=== PATIENT | male | born 1960 | race Caucasian/White ===

== ENCOUNTER 2025-04-18 16:34 | Inpatient (IN) | payer MEDICARE, BC, SELFPAY ==
[2025-04-18] VITALS (10 sets, daily range): BP systolic 102–147; BP diastolic 74–99; PULSE 90–107; RESP 18–91; TEMP 36.3–36.6; O2SAT 95–98; BMI 40.6
--- NOTE | 2025-04-18 16:52 | PD.EDSOB ---
ED SOB =RME/HPI General Chief Complaint: Shortness of Breath/Dyspnea Stated Complaint: SHORTNESS OF BREATH Time Seen by Provider: 04/18/25 16:51 Arrival date/time: 04/18/25 16:34 RME / HPI RME / HPI Narrative: DR. SUBRAMANIAN MAIN ED EVALUATION: 64 year old male presents to the Emergency Department [facility] with complaint of shortness of breath onset 1 week, worse today. Laying down exacerbates his shortness of breath. Patient states that his symptoms have been worse for the last 3 days and he has been doing nebulizer treatment x4/day and x8 puffs of inhaler/ day. No other symptoms reported at this time. PMHx: COPD, CHF, pacemaker, home oxygen on 2 L/min at night and as needed for daytime, atrial fibrillation on Eliquis. Social Hx: Patient states he quit smoking 2.5 weeks ago. No alcohol or substance use. Related Data Home Medications ?Medication ?Instructions ?Recorded ?Confirmed amiodarone 200 mg tablet 200 mg PO BID 08/03/23 04/19/25 apixaban 5 mg tablet (Eliquis) 5 mg PO BID 08/03/23 09/22/24 Held on 09/23/24. Instructions: Resume on 10/01/24. Hold for 1 week then may resume bumetanide 1 mg tablet 1 mg PO DAILY 08/03/23 04/19/25 spironolactone 25 mg tablet 25 mg PO DAILY 08/03/23 04/19/25 rosuvastatin 40 mg tablet 20 mg PO DAILY 09/22/24 09/22/24 sacubitril 24 mg-valsartan 26 mg 1 tab PO BID 09/22/24 09/22/24 tablet (Entresto) Previous Rx's ?Medication ?Instructions ?Recorded carvedilol 6.25 mg tablet 6.25 mg PO BID 30 days #60 tabs 08/06/23 Allergies Allergy/AdvReac Type Severity Reaction Status Date / Time No Known Allergies Allergy Verified 04/18/25 17:02 Review of Systems Review of Systems Systems Reviewed: All systems reviewed, normal except as documented Narrative Review of Systems: GEN: No fever, no chills, no weight loss EYES: No discharge, no visual changes, no pain HEENT: No ear pain, no congestion, no sore throat PULM: + shortness of breath, no cough, no congestion CV: No chest pain, no dyspnea on exertion, no palpitations GI: No nausea, no vomiting, no diarrhea, no pain, no constipation : No frequency, no urgency and no dysuria MUSC/SKEL: No joint pain, no back pain SKIN: No rash PSYCH: No hallucinations, no depression HEME/LYMPH: No easy bleeding or bruising tendencies NEURO: No weakness, no headache Past Medical History Past Medical History NEUROLOGIC: Negative Neurological Disorders CARDIAC: Positive Cardiac Arrhythmia, Atrial Fibrillation, Congestive Heart Failure, Valvular Heart Disease, Cardiomyopathy and Hypotension; Negative Hypercholesterolemia RESPIRATORY: Positive Chronic Obstructive Pulmonary Disease (COPD), Bronchitis and Sleep Apnea GASTROINTESTINAL: Positive Obesity ENT: Positive Deafness OTHER HISTORY: Positive Hospitalization Surgical History SURGICAL: Positive Coronary Stent (2 16 years ago), Cardiac Catheterization, Pacemaker, Auto Implanted Cardiovert Defib and Tonsillectomy Social History SMOKING STATUS: Former smoker (2.5 weeks ago quit) SUBSTANCE USE: does not use ALCOHOL: Never ED Exam Narrative Physical exam: GENERAL APPEARANCE: AxOx4, generally well-appearing, no acute distress. HEENT: NC, AT. MMM. EOMI, clear conjunctiva, oropharynx clear. NECK: Supple without lymphadenopathy. No stiffness or restricted ROM. HEART: Normal rate and regular rhythm, normal S1/S1, no m/r/g LUNGS: Diminished breath sounds bilaterally, wadsworth expiratory wheezing. ABDOMEN: Soft, nontender, nondistended with good bowel sounds heard. BACK: No midline C/T/L spine pain or deformity, No CVAT, no obvious deformity. EXTREMITIES: Without cyanosis, clubbing or edema. MUSCULOSKELETAL: FROM of all major joints, no chest tenderness NEUROLOGICAL: Grossly nonfocal. Alert and oriented, moving all 4 extremities. CN not formally tested but appear grossly intact. Skin: Warm and dry without any rash. Course Quality Measures none Orders Category Date Time Status Bedside COVID-19 Antigen Test NOW Care 04/18/25 19:32 Active Bedside Influenza A&B Antigen Test NOW Care 04/18/25 19:32 Completed Machine Wood Sander Q4H START 00 Care 04/18/25 19:33 Active Machine Wood Sander STAT Care 04/18/25 19:33 Completed Continuous Pulse Oximetry STAT Care 04/18/25 19:33 Completed EKG (ED ONLY) *Do not use* NOW Care 04/18/25 16:56 Completed EKG (ED Only) Stat Exams 04/18/25 16:56 Draft XR chest 1V portable Stat Exams 04/18/25 16:52 Completed B-Type Natriuretic Peptide Stat Lab 04/18/25 20:13 Completed Blood Culture (Lab) Stat Lab 04/18/25 20:16 Received CBC Stat Lab 04/18/25 17:26 Completed CMP [Comprehensive Metabolic Panel] Stat Lab 04/18/25 17:26 Completed Lactate (Lactic Acid) Stat Lab 04/18/25 20:13 Completed Lipase Stat Lab 04/18/25 20:13 Completed Magnesium Stat Lab 04/18/25 20:13 Completed Phosphorous Stat Lab 04/18/25 20:13 Completed Procalcitonin Stat Lab 04/18/25 20:13 Completed Prothrombin Time with INR Stat Lab 04/18/25 20:13 Completed Troponin I Stat Lab 04/18/25 17:26 Completed Troponin I Stat Lab 04/18/25 20:13 Completed ALBUTEROL RT 0.5ml [Proventil Rt 0.5ml] Med 04/18/25 16:52 Discontinued 10 mg INH X1 ONE Azithromycin Inj [Zithromax Inj] 500 mg Med 04/18/25 21:07 Discontinued Sodium Chloride 0.9% 250 ml [Ns] 250 ml IV X1 Bumetanide Inj [Bumex Inj] Med 04/18/25 16:52 Discontinued 2 mg IVP X1 ONE Ipratropium Beemer Rt Kim [Atrovent Rt Kim] Med 04/18/25 16:52 Discontinued 1 mg INH X1 ONE Sodium Chloride Rt Kim 0.9% [NS Rt Kim 0.9%] Med 04/18/25 16:52 Active 3 ml INH PRN PRN cefTRIAXone/D5w 1gm IV premix [Rocephin/D5w 1gm IV Med 04/18/25 21:07 Discontinued premix] 1 gm in 50 ml IV X1 predniSONE Med 04/18/25 16:52 Discontinued 60 mg PO X1 ONE Oxygen Delivery NOW RT 04/18/25 19:33 Active Vital Signs Vital signs: Vital Signs Temperature 97.5 F 04/18/25 16:35 Pulse Rate 105 H 04/18/25 16:35 Respiratory Rate 19 04/18/25 16:35 Blood Pressure 116/74 04/18/25 16:35 Pulse Oximetry (%) 97 04/18/25 16:35 Oxygen Delivery Method Nasal Cannula 04/18/25 16:35 Oxygen Flow Rate 6 04/18/25 16:35 Procedures -ED EKG Interpretation #1: Date of EK04/18/25 Time of EK:33 Rate: 104 Interpretation: Interpreted by me Additional EKG comment: paced rhythm, rate 104, no STEMI Shortness of Breath / Dyspnea MDM Narrative MDM Narrative:: I, Mavis Pedraza am scribing for and in the presence of Dr. Subramanian. Patient data External records reviewed:: EMS form Clinical information provided by:: patient and EMS Social determinants that could affect healthcare access:: none Patient has the following chronic illnesses:: COPD, CHF, pacemaker, home oxygen on 2 L/min at night and as needed for daytime, atrial fibrillation on Eliquis. How is presenting disease/condition affected by chronic disease/condition?: exacerbated by Evaluation data The following diagnostics were reviewed and interpreted by me:: lab results, radiology exam(s) and EKG tracing(s) Lab and/or radiology exams considered but not ordered:: none Interpretation Summary: Procedure(s): XR chest 1V portable Accession Number(s): [id number] cc: Westley Subramanian MD; Gen Agustin MD; Jose Oneill MD~ Examination: AP chest single view TECHNIQUE: Sitting AP portable chest single view Date and time: April 18, 2025 1804 hours Comparison July 13, 2024 INDICATIONS: Shortness of breath today. FINDINGS: Mild CHF Moderate enlargement left ventricle, pulmonary vascular congestion with perihilar basilar edema Cardiac leads stable position IMPRESSION: Mild CHF Dictated By: Gen Agustin MD Medications / Prescriptions Medications or Prescriptions considered but not ordered:: none Medication administrations:: Medication Administration History Albuterol/Ipratropium (Albuterol/Ipratropium (Duoneb) Rt Kim 3 Ml Nebu) 3 ml INH Q4HRRT [facility] Stop: 05/19/25 02:59 Last Admin: 04/19/25 06:37 Dose: 3 ml Documented By: Admin: 04/19/25 03:46 Dose: Not Given Documented By: PAR Non-Admin Reason: Patient Refused Furosemide (Furosemide Inj 10 Mg/Ml 4ml Vial) 40 mg IVP QDAY YESICA Stop: 05/19/25 08:59 Heparin Sodium (Porcine) (Heparin Sod Inj 5000 Unit/Ml Vial) 5,000 unit SC Q8HR YESICA Stop: 05/03/25 05:59 Last Admin: 04/19/25 06:06 Dose: 5,000 unit Documented By: Co-signed By: [facility] Ondansetron HCl (Ondansetron Inj 2 Mg/Ml Inj 2 Ml) 4 mg IV Q6H PRN; Protocol PRN Reason: NAUSEA OR VOMITING Stop: 05/19/25 00:17 Sennosides (Senna Tablet) 1 tab PO QDAY PRN; Protocol PRN Reason: constipation Stop: 05/19/25 00:17 Sodium Chloride (Sodium Chloride Rt Kim 0.9% 3 Ml Nebu) 3 ml INH PRN PRN PRN Reason: SOLN Stop: 05/18/25 16:51 Discontinued Medications Albuterol (Albuterol Rt 2.5 Mg/0.5 Ml Nebu) 10 mg INH X1 ONE Stop: 04/18/25 16:53 Last Admin: 04/18/25 17:29 Dose: 10 mg Documented By: [facility] Bumetanide (Bumetanide Inj 0.25 Mg/Ml Vial 4 Ml) 2 mg IVP X1 ONE Stop: 04/18/25 16:53 Last Admin: 04/18/25 17:47 Dose: 2 mg Documented By: LUISA Ceftriaxone Sodium/Dextrose (Rocephin/D5w 1gm Iv Premix) 1 gm in 50 mls @ 100 mls/hr IV X1 ONE Stop: 04/18/25 21:36 Last Infusion: 04/18/25 22:21 Dose: Infused Documented By: Admin: 04/18/25 21:29 Dose: 100 mls/hr Documented By: JAZLYN Azithromycin 500 mg/ Sodium (Chloride) 250 mls @ 250 mls/hr IV X1 ONE Stop: 04/18/25 22:06 Last Infusion: 04/18/25 22:32 Dose: Infused Documented By: Admin: 04/18/25 21:30 Dose: 250 mls/hr Documented By: JAZLYN Ipratropium Beemer (Ipratropium Rt 0.5 Mg/ 2.5 Ml Nebu) 1 mg INH X1 ONE Stop: 04/18/25 16:53 Last Admin: 04/18/25 17:29 Dose: 1 mg Documented By: [facility] Prednisone (Prednisone 20 Mg Tablet) 60 mg PO X1 ONE Stop: 04/18/25 16:53 Last Admin: 04/18/25 17:46 Dose: 60 mg Documented By: DB see above Consultations Consultation(s) initiated? (list below): No Diagnosis Shortness of Breath Differential Diagnosis: acute exacerbation of chronic obstructive airways disease, congestive heart failure and community acquired pneumonia Most likely diagnosis given after review of the tests above:: No official diagnoses at this time, still pending diagnostic tests. Patient signout to the overnight stocker provider. Admission Indicated Admission indicated?: indicated Explain why admission is indicated or not indicated:: No final disposition plan at this time, still pending diagnostic tests. Patient signout to the overnight stocker provider. Admission Request Was there a request for admission?: No Disposition Plan Disposition Plan: other (specify) (Patient signout to the overnight stocker provider.) Critical Care Time Critical Care Time Critical Care Time: Yes Total Critical Care Time (min.): 35 Attestation: The high probability of sudden, clinically significant deterioration in the patient?s condition required the highest level of my preparedness to intervene urgently. The services I provided to this patient were to treat and/or prevent clinically significant deterioration. Services included the following: chart data review, reviewing nursing notes and/or old charts, documentation time, systems consultant collaboration regarding findings and treatment options, medication orders and management, direct patient care, vital sign assessments and ordering, interpreting and reviewing diagnostic studies and lab tests. Aggregate critical care time includes only time during which I was engaged in work directly related to the patient?s care, as described above, whether at bedside or elsewhere in the Emergency Department. It did not include time spent performing other reported procedures or the services of residents, students, nurses or physician assistants. Discharge Plan Plan Patient Disposition: Admit Acute Care w/in Hospital Problem List Clinical Impression: Pneumonia, COPD exacerbation, Sepsis
--- NOTE | 2025-04-18 16:56 | EKG_ITS ---
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
[2025-04-18] MEDS: IPRATROPIUM RT 0.5 MG/ 2.5 ML NEBU 1 MG INH (17:29)
[2025-04-18] MEDS: ALBUTEROL RT 2.5 MG/0.5 ML NEBU 10 MG INH (17:29)
[2025-04-18] MEDS: predniSONE 20 MG TABLET 60 MG PO (17:46)
[2025-04-18] MEDS: BUMETANIDE INJ 0.25 MG/ML VIAL 4 ML 2 MG IVP (17:47)
[2025-04-18 17:51] LABS: Basophils # (Auto) 0.1 Thou/mm3 (0.0-0.2); Basophils % (Auto) 1 % (0-2.5); Eosinophils # (Auto) 0.4 Thou/mm3 (0.0-0.5); Eosinophils % (Auto) 3 % (0-10); Hematocrit 48.5 % (41.0-53.0); Hemoglobin 17.7 g/dL (13.5-16.0); Immature Granulocytes % (Auto) 0 % (0-0); Immature Granulocytes Auto 0.04 Thou/mm3 (0.00-0.00); Lymphocytes # (Auto) 3.3 Thou/mm3 (1.0-4.8); Lymphocytes % (Auto) 31 % (10-50); Mean Corpuscular HGB Conc 36.5 g/dl (31.0-37.0); Mean Corpuscular Hemoglobin 34.1 pg (25.0-35.0); Mean Corpuscular Volume 93 fL (80-100); Monocytes # (Auto) 1.1 Thou/mm3 (0.0-0.8); Monocytes % (Auto) 10 % (0-12); Neutrophils # (Auto) 5.9 Thou/mm3 (1.8-7.7); Neutrophils % (Auto) 55 % (37-80); Nucleated Red Blood Cell % 0 /100 WBC (0); Platelet Count 206 Thou/mm3 (140-440); Red Blood Count 5.19 Miln/mm3 (4.50-5.90); White Blood Count 10.8 Thou/mm3 (3.8-10.6)
--- NOTE | 2025-04-18 18:15 | PD.EDADDENDU ---
Emergency Room Addendum Addendum Narrative: 1800: Care assumed from Dr. Starr, the previous shift emergency physician. Past medical, surgical, social and family history reviewed. Vitals and home medications reviewed. Results and treatment plan discussed. I will assume the care of the patient at this time and will follow the patient, pending work-up. Please refer to the emergency department record for history and examination from initial visit. 64yo male with a history of cardiomyopathy, CHF, COPD, aFib on Eliquis, HTN, HLD BIBA from home presents to the ED for a chief complaint of shortness of breath. Patient endorses having chronic shortness of breath, but reports his symptoms have progressively gotten worse over the last 3-4 days. Patient reports feeling fatigued, generally weak, and having a productive cough. Patient has been using his breathing treatments and nebulizer treatments at home without improvement of symptoms. He has not been taking his water pills on a regular basis due to being concerned over his at a local SNF. Patient states he recently finished a course of antibiotics for URI, but the daughter was concerned due to the patient's worsening symptoms, so she called 911 to bring the patient in for evaluation. CXR shows cardiomegaly, dual chamber pacemaker, and right lower lobe infiltrate, according to my interpretation. WBC 10.8, HnH 17.7/48.5, BUN 26, Glucose 132, Troponin is normal, Lactic Acid is 2.3, BNP is 526, Procalcitonin is normal, Bedside COVID and Influenza are negative, according to my interpretation. 2105: Patient has a HR of 106 with a RR of 24. IVF not ordered due to the patient's history of CHF. Rocephin and Azithromycin ordered. 2206: Discussed results with the patient at bedside. I informed the patient that he needs to be admitted for further treatment. Patient is agreeable with the plan. Will consult an admission to the hospitalist. 2110: Discussed case with the resident physician, attending Dr. Eddy from Hospitalist service regarding admission. Discussed patients ED course, exam findings, labs, and radiology results. The Hospitalist agrees to accept the patient for admission. Diagnoses include pneumonia, COPD exacerbation, and sepsis.
[2025-04-18 18:20] LABS: Alanine Aminotransferase 48 U/L (10-49); Albumin, Serum 4.3 gm/dL (3.4-4.8); Albumin/Globulin Ratio 1.5 (1.2-2.2); Alkaline Phosphatase 91 U/L (46-116); Anion Gap 8 (7-16); Aspartate Amino Transferase 32 U/L (0-34); BUN/Creatinine Ratio 22 Ratio (12-20); Bilirubin,Total 0.5 mg/dL (0.3-1.2); Blood Urea Nitrogen 26 mg/dL (9-23); Calcium 8.8 mg/dL (8.3-10.6); Calcium (Corrected) 8.8 mg/dL (8.5-10.1); Carbon Dioxide 22.7 mMol/L (20.0-31.0); Chloride 111 mMol/L (98-107); Creatinine (Component) 1.2 mg/dL (0.6-1.3); Estimated Creatinine Clearance 67.3 mL/min (>60); Globulin 2.8 gm/dL (2.3-3.5); Glucose 132 mg/dL (74-106); Osmolality,Calculated 289 (275-295); Potassium 4.1 mMol/L (3.4-5.1); Sodium 142 mMol/L (136-145); Total Protein 7.1 gm/dL (5.7-8.2); Troponin I 0.036 ng/mL (0.0-0.045); eGFR > 60 See Note
[2025-04-18 20:24] LABS: Lactate (Lactic Acid) 2.3 mMol/L (0.4-2.0)
[2025-04-18 20:35] LABS: Prothrombin Time 11.2 Seconds (9.0-12.2)
[2025-04-18 20:45] LABS: B-Type Natriuretic Peptide 526 pg/mL (0-100)
[2025-04-18 20:53] LABS: Lipase 31 U/L (12-53); Magnesium 2.1 mg/dL (1.6-2.6); Phosphorous 3.1 mg/dL (2.4-5.1); Procalcitonin 0.11 ng/ml (0.0-0.49); Troponin I 0.036 ng/mL (0.0-0.045)
[2025-04-18] MEDS: cefTRIAXone/D5w 1gm IV premix 1 GM/50 ML BAG IV (21:29)
[2025-04-18] MEDS: AZITHROMYCIN INJ 500 MG in SODIUM CHLORIDE 0.9% 250 ML 250 ML 250 MG IV (21:30)
[2025-04-18 23:15] LABS: Reflex Lactate? Y
[2025-04-19] VITALS (12 sets, daily range): BP systolic 100–170; BP diastolic 78–95; PULSE 78–119; RESP 16–22; TEMP 35.9–36.4; O2SAT 94–100; BMI 40.6
--- NOTE | 2025-04-19 01:40 | ESHP_ITS ---
<Statement entered by Kt Eddy MD - 04/19/25 13:31> I have discussed and was present for the essential components of the history, physical examination, diagnosis, and treatment plan with the resident. I agree with the patient's care as documented by the resident and amended herein by me. Kt Eddy MD FACP. Documentation for date of: 04/19/25 HPI History of Present Illness Chief complaint: SOB History of present illness: Lonnie Celis is 64 yr male with PMH of CAD status post 4 stents, HFrEF EF 25%, possible COPD, hypertension denting to ED due to shortness of breath since past couple days. Patient states that he has a difficult time walking around the house doing daily activities without short of breath. Resolves with rest. Uses 2 L of oxygen every night. Follows with cardiology Dr. Warner closely outpatient. Last appointment few days ago where he had stress test completed. Does not believe there were any changes made to her medication regimen. Usually checks blood pressure at home ranging 110?120 systolic. Admits to missing doses of diuretic medication in the past week as patient's is at the hospital and is avoiding excessive urination or trips to the bathroom. Currently weight is 237, does not know dry weight. Endorses orthopnea, PND, occasional lower extremity edema. Unable to sleep on his back. Denies any chest pain, fever, vomiting, abdominal pain. Was started on amoxicillin course by PCP which she completed 5 of 7 days. States that he was started on the antibiotics due to his cough. In ED, blood pressure 135/90, heart rate 102, RR 21, saturating 96% on 2 L nasal cannula. CBC unremarkable, CMP unremarkable. Elevated lactic acid 2.3 BNP 526. Chest x-ray official read pending peers to be possible right lower lung pneumonia with pulmonary vessel congestion. He was given DuoNeb, prednisone 60 mg, Bumex 2 mg IV, ceftriaxone, azithromycin while in the ED. Patient to be admitted for mild CHF exacerbation versus pneumonia. PMH: As noted above PSH appendectomy, for pacemaker replacements, 4 stents Family Hx: Denies CAD history, alcohol use disorder in father side. Social: Lives with in [place]. Smokes 1 pack of cigarettes every few days for past 40 years. Drinks socially, denies drug use. Meds: Med rec pending Allergies: NKDA Review of Systems Review of Systems Systems Reviewed: All systems reviewed, normal except as documented Exam Vital Signs Temp Pulse Resp BP Pulse Ox O2 Del Method O2 Flow Rate 97.6 F 106 H 18 128/99 H 96 Nasal Cannula 2 04/18/25 23:11 04/18/25 23:11 04/18/25 23:11 04/18/25 23:11 04/18/25 23:11 04/18/25 23:11 04/18/25 23:11 Narrative Exam General: Elderly male, obese, no acute distress, cooperative, laying on his side HEENT: NCAT, No JVD noted. Mucosa moist. Pupils are equal and reactive to light bilaterally Cardiovascular: Normal S1 and S2. Regular rate and rhythm. Respiratory: Wheezing auscultated bilaterally. Abdomen: Soft, nontender, distended, normal bowel sounds. Skin: Warm to touch, dry, no rashes noted Musculoskeletal: No gross injuries. Able to move all 4 extremities. No pitting edema Neuro: Alert and oriented x3. No focal neuro deficits. Psych: Normal affect and mood Results: Labs 04/18/25 17:26 04/18/25 17:26 Labs: Short CBC 04/18/25 Range/Units 17: WBC 10.8 H (3.8-10.6) Thou/mm3 Hgb 17.7 H* (13.5-16.0) g/dL Hct 48.5 (41.0-53.0) % Plt Count 206 (140-440) Thou/mm3 BMP 04/18/25 17:26 Sodium 142 Potassium 4.1 Chloride 111 H Carbon Dioxide 22.7 BUN 26 H Creatinine 1.2 Glucose 132 H Calcium 8.8 Cardiac Enzymes 04/18/25 04/18/25 Range/Units 17:26 20:13 Troponin I 0.036 0.036 (0.0-0.045) ng/mL Liver Function 04/18/25 Range/Units 17:26 Total Bilirubin 0.5 (0.3-1.2) mg/dL AST 32 (0-34) U/L ALT 48 (10-49) U/L Alkaline Phosphatase 91 (46-116) U/L Albumin 4.3 (3.4-4.8) gm/dL Quality Measures Quality Measures none Advance care planning discussed with:: patient Medications Home Medications and Allergies Home Medications ?Medication ?Instructions ?Recorded ?Confirmed ?Type amiodarone 200 mg tablet 200 mg PO BID 08/03/2309/22 History apixaban 5 mg tablet (Eliquis) 5 mg PO BID 08/03/23 History Held on 09/23/24. Instructions: Resume on 10/01/24. Hold for 1 week then may resume bumetanide 1 mg tablet 1 mg PO DAILY 08/03/2309/22 History spironolactone 25 mg tablet 25 mg PO DAILY 08/03/23 History rosuvastatin 40 mg tablet 20 mg PO DAILY 09/22/2409/01 History sacubitril 24 mg-valsartan 26 mg 1 tab PO BID 09/22/24 09/22/24 History tablet (Entresto) Allergies Allergy/AdvReac Type Severity Reaction Status Date / Time No Known Allergies Allergy Verified 04/18/25 17:02 Visit Medications Albuterol/Ipratropium (Albuterol/Ipratropium (Duoneb) Rt Kim 3 Ml Nebu) 3 ml INH Q4HRRT [facility] Stop: 05/19/25 02:59 Heparin Sodium (Porcine) (Heparin Sod Inj 5000 Unit/Ml Vial) 5,000 unit SC Q8HR [facility] Stop: 05/03/25 05:59 Ondansetron HCl (Ondansetron Inj 2 Mg/Ml Inj 2 Ml) 4 mg IV Q6H PRN; Protocol PRN Reason: NAUSEA OR VOMITING Stop: 05/19/25 00:17 Sennosides (Senna Tablet) 1 tab PO QDAY PRN; Protocol PRN Reason: constipation Stop: 05/19/25 00:17 Sodium Chloride (Sodium Chloride Rt Kim 0.9% 3 Ml Nebu) 3 ml INH PRN PRN PRN Reason: SOLN Stop: 05/18/25 16:51 Discontinued Medications Albuterol (Albuterol Rt 2.5 Mg/0.5 Ml Nebu) 10 mg INH X1 ONE Stop: 04/18/25 16:53 Last Admin: 04/18/25 17:29 Dose: 10 mg Bumetanide (Bumetanide Inj 0.25 Mg/Ml Vial 4 Ml) 2 mg IVP X1 ONE Stop: 04/18/25 16:53 Last Admin: 04/18/25 17:47 Dose: 2 mg Ceftriaxone Sodium/Dextrose (Rocephin/D5w 1gm Iv Premix) 1 gm in 50 mls @ 100 mls/hr IV X1 ONE Stop: 04/18/25 21:36 Last Infusion: 04/18/25 22:21 Dose: Infused Azithromycin 500 mg/ Sodium (Chloride) 250 mls @ 250 mls/hr IV X1 ONE Stop: 04/18/25 22:06 Last Infusion: 04/18/25 22:32 Dose: Infused Ipratropium [place] (Ipratropium Rt 0.5 Mg/ 2.5 Ml Nebu) 1 mg INH X1 ONE Stop: 04/18/25 16:53 Last Admin: 04/18/25 17:29 Dose: 1 mg Prednisone (Prednisone 20 Mg Tablet) 60 mg PO X1 ONE Stop: 04/18/25 16:53 Last Admin: 04/18/25 17:46 Dose: 60 mg Assessment & Plan Plan Lonnie Celis is 64 yr male with PMH of CAD status post 4 stents, HFrEF EF 25%, possible COPD, hypertension denting to ED due to shortness of breath since past couple days. Patient states that he has a difficult time walking around the house doing daily activities without short of breath. Resolves with rest. Uses 2 L of oxygen every night. Patient to be admitted for mild CHF exacerbation versus pneumonia. #Mild CHF exacerbation #Hx HFrEF 25% SOB, PND, orthopnea since past few days. Follows with Dr. Warner outpatient who has him on goal-directed medical therapy regimen. Most recent echo shows EF 25%. Likely ischemic cardiomyopathy per cardiology note. NYHA class II -IV lasix 40mg daily -hold Entresto and metoprolol succinate -daily weights -strict INOs -low sodium diet -restrict fluid to 1500mL -keep potassium >4, mag >2 -daily CBC, CMP #CAP #COPD? CURB 65--2 points (moderate risk, consider inpatient treatment) PSI--class III (inpt or outpatient tx okay) -IV ceftriaxone 1g daily -IV azithromycin 500mg daily -blood cultures pending -duonebs PRN #Hx HTN #Hx Atrial fibrillation -med rec pending Health maintenance: Dispo: tele, CHF FEN: low sodium DVT prophylaxis: Subcu heparin CODE STATUS: Full code The patient's management plan was discussed with my attending physician Dr. Eddy. Yessica Soria, PGY-1
[2025-04-19 05:48] LABS: Basophils % (Auto) 0 % (0-2.5); Eosinophils % (Auto) 0 % (0-10); Hematocrit 50.5 % (41.0-53.0); Immature Granulocytes % (Auto) 1 % (0-0); Immature Granulocytes Auto 0.07 Thou/mm3 (0.00-0.00); Lymphocytes # (Auto) 1.2 Thou/mm3 (1.0-4.8); Lymphocytes % (Auto) 9 % (10-50); Mean Corpuscular HGB Conc 35.6 g/dl (31.0-37.0); Mean Corpuscular Volume 95 fL (80-100); Monocytes # (Auto) 0.3 Thou/mm3 (0.0-0.8); Monocytes % (Auto) 2 % (0-12); Neutrophils # (Auto) 11.6 Thou/mm3 (1.8-7.7); Neutrophils % (Auto) 88 % (37-80); Nucleated Red Blood Cell % 0 /100 WBC (0); Platelet Count 206 Thou/mm3 (140-440); RDW Standard Deviation 46.2 fL (35.1-43.9); White Blood Count 13.1 Thou/mm3 (3.8-10.6)
[2025-04-19] MEDS: HEPARIN SOD INJ 5000 UNIT/ML VIAL SC (06:06)
[2025-04-19 06:17] LABS: Alanine Aminotransferase 48 U/L (10-49); Albumin, Serum 4.6 gm/dL (3.4-4.8); Albumin/Globulin Ratio 1.4 (1.2-2.2); Alkaline Phosphatase 90 U/L (46-116); Anion Gap 13 (7-16); Aspartate Amino Transferase 32 U/L (0-34); BUN/Creatinine Ratio 18 Ratio (12-20); Bilirubin,Total 0.5 mg/dL (0.3-1.2); Blood Urea Nitrogen 23 mg/dL (9-23); Calcium 9.1 mg/dL (8.3-10.6); Calcium (Corrected) 9.1 mg/dL (8.5-10.1); Carbon Dioxide 23.4 mMol/L (20.0-31.0); Chloride 106 mMol/L (98-107); Creatinine (Component) 1.3 mg/dL (0.6-1.3); Estimated Creatinine Clearance 62.1 mL/min (>60); Globulin 3.3 gm/dL (2.3-3.5); Glucose 147 mg/dL (74-106); Osmolality,Calculated 289 (275-295); Phosphorous 2.6 mg/dL (2.4-5.1); Potassium 4.3 mMol/L (3.4-5.1); Sodium 142 mMol/L (136-145); Total Protein 7.9 gm/dL (5.7-8.2); eGFR > 60 See Note
[2025-04-19] MEDS: ALBUTEROL/IPRATROPIUM (Duoneb) RT SOL 3 ML NEBU INH ×2 (06:37→10:50)
[2025-04-19] MEDS: AMIODARONE HCL 200 MG TABLET PO (09:25)
[2025-04-19] MEDS: FUROSEMIDE INJ 10 MG/ML 4ML VIAL 40 MG IVP (09:25)
[2025-04-19] MEDS: APIXABAN 2.5 MG TABLET 5 MG PO (09:26)
--- NOTE | 2025-04-19 11:46 | ESDS_ITS ---
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 Pt had arrived to the ED with a blood pressure 135/90, heart rate 102, RR 21, saturating 96% on 2 L nasal cannula. CBC unremarkable, CMP unremarkable. Elevated lactic acid 2.3 BNP 526. CXR showed pulmonary vessel congestion. He was given DuoNeb, prednisone 60 mg, Bumex 2 mg IV, ceftriaxone, azithromycin while in the ED. Medicine was consulted and pt was admitted to floors. While on the floors, pt was given breathing tx and weaned down on oxygen. With Bumex diuresis, pt continued to improve clinically. We felt that pt was ready to be discharged due maintained oxygen levels, did not require additional steroids, or abx tx. We recommended pt to follow up with PCP and sunglass clip attacher within a week. It was noticed that pt had Hgb of 18.0, recommend to follow up with his PCP in regards to this. We wanted to have pt to repeat lactate as it was elevated at 2.3, however pt refused upon d/c. Pt was then discharged with the following instructions. Discharge Instructions: Take medicines as prescribed Follow up with PCP within one week Follow up with your sunglass clip attacher within one week, Dr. Warner Return to ER if your symptoms worsen or return Follow up with your PCP to do a Complete blood count, we noticed your Hemoglobin is elevated at 18.0 Problem List: #Acute on chronic hypoxic respiratory failure #Acute on Chronic HFrEF exacerbation #Hx of HTN #Hx of CAD s/p PCI 4x stents #COPD #Ischemic Cardiomyopathy #Paroxysmal Atrial Fibrillation #Hx of BUILDING MECHANIC Defibrillator #Erythrocytosis #Lactic acidosis Discharge summary was reviewed with my attending Dr. Andrew Birch, PGY-1 Time Spent with Patient Time attestation: Total time spent providing and/or coordinating discharge services: Time spent: Greater than 30 minutes Exam Vital Signs Temp Pulse Resp BP Pulse Ox O2 Del Method O2 Flow Rate 96.6 F L 115 H 19 110/83 94 L Room Air 1 04/19/25 11:39 04/19/25 11:39 04/19/25 11:39 04/19/25 11:39 04/19/25 11:39 04/19/25 11:39 04/19/25 08:00 Narrative Exam General: AAOx3, NAD, pleasant male HEENT: Moist mucous membranes, conjunctiva clear, EOMI, PERRLA, some poor dentition Cardiovascular: S1, S2, radial pulses +2 bilat, RRR Pulmonary: CTAB bilat no cough, no wheezing, no crackles, not on oxygen GI: No tenderness to light or deep palpitation, no guarding, rigidity, rebound tenderness or distension Extremities: Trace edema in lower extremities bilaterally, dorsalis pedis pulses +2 bilaterally Neuro: AAOx3, no focal motor or sensory deficits in the UE or LE bilat Psych: Good judgement, thought and behavior. Cooperative Discharge Plan Plan Patient Disposition: HOME (Self Care) Care Plan Goals: Discharge Instructions: Take medicines as prescribed Follow up with PCP within one week Follow up with your sunglass clip attacher within one week, Dr. Warner Return to ER if your symptoms worsen or return Follow up with your PCP to do a Complete blood count, we noticed your Hemoglobin is elevated at 18.0 CHF instructions Please ensure you have a weighing scale, 2 gram sodium restriction, 2L fluid restriction. Please note your weight on the discharge paperwork prior to leaving every morning after you wake up and urinate, please weight yourself, and document the date and the weight. if your weight increases by 2 pounds in 1 day or by 5 pounds in a week, call your sunglass clip attacher. if you have shortness of breath, having to use more pillows to prop your head up when you sleep, waking up short of breath, clothes fitting tighter, swelling in your legs, decreased urination, please call your PCP. If any symptoms are severe, go to the emergency department. Avoid using medications called NSAIDs (aka non steroidal anti inflammatory drugs) such as Advil, Aleeve, Motrin, Ibuprofen and Naproxen. Avoid eating canned vegetables, canned soups, frozen dinners as these tend to have a lot of salt. Prescriptions/Referrals Prescriptions/Med Rec: Continued rosuvastatin 40 mg tablet 20 mg PO DAILY amiodarone 200 mg tablet 200 mg PO BID Patient Comments: TAKE 1 TABLET BY MOUTH TWICE DAILY spironolactone 25 mg tablet 25 mg PO DAILY bumetanide 1 mg tablet 1 mg PO DAILY Patient Comments: TAKE 1 TABLET BY MOUTH EVERY DAY Eliquis 5 mg tablet 5 mg PO BID carvedilol 6.25 mg tablet 6.25 mg PO BID 30 Days Qty: 60 2RF Rx Instructions: must administer with a meal/food Discontinued Entresto 24-26 mg Tablet 1 tab PO BID Referrals: Jose Oneill([facility]), [Primary Care Provider] - Patient/Caregiver Discharge Instructions Discharge Activity: activity as tolerated Education Materials: AFL/Afib, COPD Meds, ED Heart Failure, Congestive (CHF) Print Language: Bulgarian Stand Alone Forms: [employer] Award Info., Patient Portal Info Letter Discharge Order Discharge Orders: Discharge (Routine); Ordered 04/19/25 Ordered By: Gwendolyn Birch Quality Discharge Quality Measures VTE prophylaxis (Eliquis ) Attestestation MD Attestation I have discussed and was present for the essential components of the discharge history, physical examination, diagnosis, and discharge treatment plan with the resident. I agree with the patient's discharge care as documented by the resident and amended herein by me. Benny Morales DO. The patient understood all discharge instructions, all questions were answered satisfactorily. The patient was instructed to return to the Emergency Department is symptoms worsened or persisted. Patient was doing remarkably well on morning of discharge, wanted to go home, SpO2 96% on room air, patient felt well, lungs were clear to auscultation, patient denied any shortness of breath. Patient refused repeat lactic acid which was elevated to 3.0. Patient will need close follow-up with cardiology, he has an appointment with his sunglass clip attacher Dr. aWrner next week.. Patient discharged on Coreg, spironolactone and Lasix, patient was on Entresto in the past however patient got dizzy on the medication. Unclear why he was not started on MARY/ARB hence this will need to be addressed with cardiology at time of follow-up visit. Patient was stable, ambulatory, tolerating p.o. intake and afebrile at time of discharge home. Although this document has been carefully reviewed, there may still be some phonetic and other typographical errors. These errors are purely grammatical due to imperfections in the software program and should not be construed in any way to compromise the substance of the patient's medical care during this visit.
--- NOTE | 2025-04-19 15:35 | PC.SS ---
SS met with patient regarding his d/c plan. Pt is alert/oriented. Pt was admitted for CHF Exacerbation. Pt confirmed demographic and contact information is correct on facesheet. Pt resides with , son, and grandchildren. Pt ambulates independently without assistance or DME. Pt is ok with all ADLs. Patient?s pharmacy of choice is [facility]. Pt named his dtr, Socorro Celis, phone# [phone] medical decision maker if he is unable. SS provided verbal d/c options for home or SNF. Patient?s choice is to return home upon d/c. Pt does not have an advance directive, SS offered, and pt declined. Pt states not diabetic and is not on dialysis. D/C plan: Return home Next of Kin: shay Goldsteinr, phone# [phone] PCP: Dr. Jose Gonsalez from [facility] Address: Correct on facesheet
== END 2025-04-19 14:00 | disposition home or self-care (01) | DRG 291 ==
LOC: SERX 21:13 → SERHOLD 04-19 00:51 → S2NX 04-19 01:07
PROVIDERS: Emergency Medicine; Admitting Provider Internal Medicine; Emergency Provider Emergency Medicine; PCP Family Medicine; Visit Provider Student in an Organized Health Care Education/Training Program
DX: I11.0 Hypertensive heart disease with heart failure (principal); I50.23 Acute on chronic systolic (congestive) heart failure; J18.9 Pneumonia, unspecified organism; J96.21 Acute and chronic respiratory failure with hypoxia; J44.0 Chronic obstructive pulmonary disease with (acute) lower respiratory infection; J44.1 Chronic obstructive pulmonary disease with (acute) exacerbation; E87.20 Acidosis, unspecified; I48.91 Unspecified atrial fibrillation; I25.10 Atherosclerotic heart disease of native coronary artery without angina pectoris; F17.210 Nicotine dependence, cigarettes, uncomplicated; I25.5 Ischemic cardiomyopathy; I48.0 Paroxysmal atrial fibrillation; E78.5 Hyperlipidemia, unspecified; D75.1 Secondary polycythemia; Z95.5 Presence of coronary angioplasty implant and graft; Z79.01 Long term (current) use of anticoagulants; Z79.899 Other long term (current) drug therapy
CPT/HCPCS: 36415; 71045; 80053; 83605; 83690; 83735; 83880; 84100; 84145; 84484; 85025; 85610; 87040; 87400; 87811; 93005; 94640; 94644; 94762; 96365; 96368; 96375; 99291; A9270; J0456; J0696; J1644; J1938; J3490; J7050; J7512

== ENCOUNTER 2025-04-23 10:38 | Inpatient (IN) | payer MEDICARE, BC, SELFPAY ==
[2025-04-23] VITALS (13 sets, daily range): BP systolic 101–126; BP diastolic 52–89; PULSE 99–122; RESP 18–94; TEMP 36.1–36.6; O2SAT 95–99; BMI 40.6
--- NOTE | 2025-04-23 11:21 | EDNOTE_ITS ---
ED Chest Pain RME/HPI General Chief Complaint: Chest Pain Stated Complaint: CHEST PAIN Time Seen by Provider: 04/23/25 11:17 Arrival date/time: 04/23/25 10:38 RME / HPI RME / HPI narrative: 64 yr male with PMH of CAD s/p PCI 4x stents, HFrEF EF 25% with Defibrillator, COPD , Afib Ischemic Cardiomyopathy, and hypertension was brought in by EMS for evaluation regarding chest pain. Patient has been having chest pain since 2:00 this morning, described as chest pressure, severity moderate. Patient has been using oxygen 2 L at night. Patient was recently admitted in this hospital and was discharged [address] 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 Patient denies any cough denies any fever denies any other complaints no medications taken prior to arrival. Related Data Home Medications ?Medication ?Instructions ?Recorded ?Confirmed amiodarone 200 mg tablet 200 mg PO BID 08/03/2304/19 apixaban 5 mg tablet (Eliquis) 5 mg PO BID 08/03/23 bumetanide 1 mg tablet 1 mg PO DAILY 08/03/2304/19 spironolactone 25 mg tablet 25 mg PO DAILY 08/03/23 rosuvastatin 40 mg tablet 20 mg PO DAILY 09/22/2409/01 Previous Rx's ?Medication ?Instructions ?Recorded carvedilol 6.25 mg tablet 6.25 mg PO BID 30 days #60 t abs 08/06/23 Allergies Allergy/AdvReac Type Severity Reaction Status Date / Time No Known Allergies Allergy Verified 04/18/25 17:02 Review of Systems Review of Systems Narrative Review of Systems: Review of system reviewed and within normal limits except mentioned in HPI ED Exam Narrative Physical exam: VITAL SIGNS: Reviewed. GENERAL APPEARANCE: Alert and interactive, follows commands, no acute distress, HEAD AND FACE: Non-traumatic. ENT: PERRL, pink conjunctivitis, eyelid no trauma, Mucous membrane moist. NECK: Supple, nontender, no nuchal rigidity. CHEST: No tenderness, no crepitus, no paradoxical movement, no retractions. LUNGS: Clear, well ventilated, symmetric, no rales, no wheezing, no ronchi, no stridor, good breath sounds bilaterally. HEART: Regular rate, regular rhythm, no murmur, no gallops. ABDOMEN: Soft, positive bowel sounds, nondistended, no guarding, nontender, no rebound, no masses, RECTAL: Deferred. GENITAL: Deferred. NEUROLOGICAL: Gross motor function intact sensory function intact, Appropriate for age. MUSCULOSKELETAL: low back nontender, full range of motion. EXTREMITIES: Nontender, full range of motion. SKIN: Color pink, dry, no rash, no lacerations, no abrasions, no contusions. LYMPHATICS: Deferred. Course Quality Measures none Orders Category Date Time Status COVID-19 Screening Questionnaire NOW Care 04/23/25 12:47 Active Decision to Admit X1 Care 04/23/25 12:47 Active EKG (ED ONLY) *Do not use* NOW Care 04/23/25 11:28 Completed Consult to Cardiology Stat Cons 04/23/25 12:47 Ordered EKG (ED Only) Stat Exams 04/23/25 11:28 Draft XR chest 1V Stat Exams 04/23/25 11:28 Completed B-Type Natriuretic Peptide Stat Lab 04/23/25 11:19 Completed CBC Stat Lab 04/23/25 11:19 Completed Comprehensive Metabolic Panel Stat Lab 04/23/25 11:19 Completed Partial Thromboplastin Time Stat Lab 04/23/25 11:19 Completed Prothrombin Time with INR Stat Lab 04/23/25 11:19 Completed Troponin I Stat Lab 04/23/25 11:19 Completed Urinalysis, C/S if Indicated Stat Lab 04/23/25 11:33 Completed Bumetanide Inj [Bumex Inj] Med 04/23/25 11:59 Discontinued 2 mg IVP X1 ONE Vital Signs Vital signs: Vital Signs Temperature 97.9 F 04/23/25 10:49 Pulse Rate 118 H 04/23/25 10:49 Respiratory Rate 20 04/23/25 10:49 Blood Pressure 124/89 H 04/23/25 10:49 Pulse Oximetry (%) 97 04/23/25 10:49 Oxygen Delivery Method Room Air 04/23/25 10:49 Chest Pain MDM Narrative MDM Narrative:: 64 yr male with PMH of CAD s/p PCI 4x stents, HFrEF EF 25% with Defibrillator, COPD , Afib Ischemic Cardiomyopathy, and hypertension was brought in by EMS for evaluation regarding chest pain. Patient has been having chest pain since 2:00 this morning, described as chest pressure, severity moderate. Patient has been using oxygen 2 L at night. Patient was recently admitted in this hospital and was discharged [address] 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 Patient denies any cough denies any fever denies any other complaints no medications taken prior to arrival. Patient's cardiac workup today all came back unremarkable including normal troponin except for elevated BNP. EKG showed atrial tachycardia, no ST segment elevation depression noted. No STEMI. Chest x-ray showed mild CHF Patient was given Bumex 2 mg IV x 1 Patient was seen by Dr. Warner in the emergency room, told me to admit the patient, if there is no improvement in 2 days, patient will go to the [facility]. Plan of care discussed with the patient will need to be admitted Patient data External records reviewed:: None Clinical information provided by:: patient Social determinants that could affect healthcare access:: none Patient has the following chronic illnesses:: CAD, COPD A-fib ischemic cardiomyopathy hypertension congestive heart failure How is presenting disease/condition affected by chronic disease/condition?: exacerbated by Evaluation data The following diagnostics were reviewed and interpreted by me:: lab results, radiology exam(s) and EKG tracing(s) Lab and/or radiology exams considered but not ordered:: None Interpretation Summary: See results in [facility] Medications / Prescriptions Medications or Prescriptions considered but not ordered:: None Medication administrations:: Medication Administration History Discontinued Medications Bumetanide (Bumetanide Inj 0.25 Mg/Ml Vial 4 Ml) 2 mg IVP X1 ONE Stop: 04/23/25 12:00 Last Admin: 04/23/25 12:09 Dose: 2 mg Documented By: EF Bumex Consultations Consultation(s) initiated? (list below): Yes Consultation #1 (Physician, Specialty, Details): Dr Warner thank you Diagnosis Chest Pain Differential Diagnosis: unstable angina pectoris and chest pain Most likely diagnosis given after review of the tests above:: Chest pain Admission Indicated Admission indicated?: indicated Explain why admission is indicated or not indicated:: Patient is to be admitted for further management Admission Request Was there a request for admission?: Yes Admission Attestation Admission request attestation: Discussed case with [Dr. Garza] from Hospitalist service regarding admission. Discussed patients ED course, exam findings, labs, and radiology results. The Hospitalist [agrees] to accept the patient for admission. Disposition Plan Disposition Plan: Admit Discharge Plan Plan Patient Disposition: Admit Acute Care w/in Hospital Prescriptions/Referrals Prescriptions/Med Rec: No Action rosuvastatin 40 mg tablet 20 mg PO DAILY amiodarone 200 mg tablet 200 mg PO BID Patient Comments: TAKE 1 TABLET BY MOUTH TWICE DAILY spironolactone 25 mg tablet 25 mg PO DAILY bumetanide 1 mg tablet 1 mg PO DAILY Patient Comments: TAKE 1 TABLET BY MOUTH EVERY DAY Eliquis 5 mg tablet 5 mg PO BID carvedilol 6.25 mg tablet 6.25 mg PO BID 30 Days Qty: 60 2RF Rx Instructions: must administer with a meal/food Referrals: Jose Oneill([facility])MD [Primary Care Provider] - In 1 week Problem List Clinical Impression: Chest pain Patient/Caregiver Discharge Instructions Print Language: Armenian Stand Alone Forms: [employer]beth Award Info., Patient Portal Info Letter
--- NOTE | 2025-04-23 11:28 | XR_ITS ---
Examination: AP chest single view Technique: AP portable upright chest single view Date and time: April 23, 2025 1142 hrs. Comparison April 18, 2025 Indications: Chest pain beginning 2 days ago. Findings: Mild CHF Moderate enlargement cardiac contour with vascular congestion and basilar septal edema Cardiac leads satisfactory position Impression: Mild CHF
--- NOTE | 2025-04-23 11:28 | EKG_ITS ---
[facility] Test Date: 2025-04-23 Pat Name: SALEEM DUNN Department: Room: - Gender: Male Adult Neurologist: : 1960 Requested By: Luan Boss Order Number: [id number] Reading MD: Luan Boss Measurements Intervals Freeman Rate: 113 P: 165 CT: 155 QRS: 141 QRSD: 179 T: -27 QT: 393 QTc: 541 Interpretive Statements ECTOPIC ATRIAL TACHYCARDIA RIGHT AXIS DEVIATION [QRS AXIS > 100] INTRAVENTRICULAR CONDUCTION DELAY [130+ ms QRS DURATION] Compared to ECG 04/18/2025 17:33:35 Right-axis deviation now present Intraventricular conduction delay now present Ventricular-paced complex(es) or rhythm no longer present /store/S0/[id number]/ecg/[id number].pdf
[2025-04-23 11:52] LABS: Collection Type, Urine Clean Catch; Squamous Epithelial Cell,Urine 0 /hpf (0-5)
[2025-04-23 11:54] LABS: Basophils # (Auto) 0.1 Thou/mm3 (0.0-0.2); Basophils % (Auto) 1 % (0-2.5); Eosinophils # (Auto) 0.3 Thou/mm3 (0.0-0.5); Eosinophils % (Auto) 2 % (0-10); Hematocrit 47.1 % (41.0-53.0); Hemoglobin 16.8 g/dL (13.5-16.0); Immature Granulocytes % (Auto) 1 % (0-0); Immature Granulocytes Auto 0.06 Thou/mm3 (0.00-0.00); Lymphocytes # (Auto) 2.5 Thou/mm3 (1.0-4.8); Lymphocytes % (Auto) 22 % (10-50); Mean Corpuscular HGB Conc 35.7 g/dl (31.0-37.0); Mean Corpuscular Volume 95 fL (80-100); Monocytes # (Auto) 0.9 Thou/mm3 (0.0-0.8); Monocytes % (Auto) 8 % (0-12); Neutrophils # (Auto) 7.7 Thou/mm3 (1.8-7.7); Neutrophils % (Auto) 67 % (37-80); Nucleated Red Blood Cell % 0 /100 WBC (0); Platelet Count 210 Thou/mm3 (140-440); RDW Standard Deviation 45.2 fL (35.1-43.9); Red Blood Count 4.94 Miln/mm3 (4.50-5.90); White Blood Count 11.5 Thou/mm3 (3.8-10.6)
[2025-04-23 11:58] LABS: Bilirubin,Urine Negative (Negative); Blood,Urine Negative (Negative); Clarity,Urine Clear (Clear/Hazy); Color,Urine Colorless (Lt Yel-Yel); Culture Indicated,Urine Not Indicated; Glucose, Urine Negative (Negative); Hyaline Casts,Urine < 1 /hpf (0-1); Ketones,Urine Negative (Negative); Leukocyte Esterase,Urine Negative (Negative); Nitrite,Urine Negative (Negative); Protein,Urine Negative (Neg - Trace); RBC,Urine < 1 /hpf (0-3); Urobilinogen,Urine Negative mg/dL (0.0-1.0); WBC,Urine < 1 /hpf (0-5)
[2025-04-23] MEDS: BUMETANIDE INJ 0.25 MG/ML VIAL 4 ML 2 MG IVP ×2 (12:09→18:07)
[2025-04-23 12:12] LABS: INR 1.1 (0.9-1.3); Partial Thromboplastin Time 29.8 Seconds (22.0-36.0); Prothrombin Time 11.7 Seconds (9.0-12.2)
[2025-04-23 12:15] LABS: Alanine Aminotransferase 51 U/L (10-49); Albumin, Serum 4.4 gm/dL (3.4-4.8); Albumin/Globulin Ratio 1.6 (1.2-2.2); Alkaline Phosphatase 89 U/L (46-116); Anion Gap 10 (7-16); Aspartate Amino Transferase 34 U/L (0-34); B-Type Natriuretic Peptide 809 pg/mL (0-100); BUN/Creatinine Ratio 15 Ratio (12-20); Bilirubin,Total 0.7 mg/dL (0.3-1.2); Blood Urea Nitrogen 18 mg/dL (9-23); Calcium 8.8 mg/dL (8.3-10.6); Calcium (Corrected) 8.8 mg/dL (8.5-10.1); Carbon Dioxide 25.1 mMol/L (20.0-31.0); Chloride 103 mMol/L (98-107); Creatinine (Component) 1.2 mg/dL (0.6-1.3); Estimated Creatinine Clearance 67.3 mL/min (>60); Globulin 2.8 gm/dL (2.3-3.5); Glucose 110 mg/dL (74-106); Osmolality,Calculated 278 (275-295); Potassium 4.2 mMol/L (3.4-5.1); Sodium 138 mMol/L (136-145); Total Protein 7.2 gm/dL (5.7-8.2); Troponin I 0.035 ng/mL (0.0-0.045); eGFR > 60 See Note
--- NOTE | 2025-04-23 13:30 | ESCONSULT_ITS ---
RE: SALEEM DUNN : 1960 DATE OF CONSULTATION: 04/23/2025 CONSULTING PHYSICIANS: Hospitalist and emergency room. REASON FOR CONSULTATION: Evaluation of shortness of breath, chest pressure, and congestive heart failure symptoms. HISTORY OF PRESENT ILLNESS: The patient is very well known to me for several years. The patient is a 64-year-old male with a past medical history of longstanding ischemic cardiomyopathy, chronic systolic heart failure, PCI stent placement of the RCA, circumflex artery back in 05/2006, and 07/2006 status post most recent angiogram was in 08/2024 showed evidence of dilated cardiomyopathy with single-vessel coronary artery disease. Right coronary artery was completely occluded. Circumflex artery stent was patent. He has a history of ICD implantation with CALCINER OPERATOR HELPER-D implantation with epicardial lead placement into left ventricular lateral wall about more than 10 years ago and history of paroxysmal atrial fibrillation, now has chronic persistent atrial fibrillation, has been having rapid rates intermittently since 2019. The patient was most recently hospitalized in 2023. At that time, he underwent a complete workup including coronary angiogram and cardiac catheterization that showed that the patient did have right coronary artery total occlusion, most recent angiogram was on 08/11/2023. At that time, the patient was found to have ischemic and nonischemic cardiomyopathy, ejection fraction 20%, severe LV dysfunction, chronic total occlusion of the right coronary artery, widely patent stent in the left circumflex artery. There were elevated wedge pressures, elevated PA pressures of 48 mmHg and right heart pressure was also elevated. The patient was treated in aggressive medical management. He did have ICD generator removed and replaced in 08/2024. He was seen by me in the office last week, came to the emergency room 3 days ago with shortness of breath and found an elevated hemoglobin as well and AFib with RVR. The patient was already on amiodarone to control the heart rate and carvedilol dose was increased to 6.25 mg twice daily and digoxin was added 125 mcg daily and increased to 250 mcg daily temporarily. Came to the hospital because of severe shortness of breath, chest tightness, pressure-like sensation, and anxiety as well. EKG showed evidence of atrial fibrillation with intraventricular conduction delay rate of 115 beats per minute, underlying AFib. Chest x-ray showed pulmonary congestion and cardiomegaly. He was being admitted to the hospital for management of chest pain as well as acute decompensated congestive heart failure, MEDICATIONS: Medication list at home includes he has been on bumetanide 2 mg daily and is also on Eliquis 5 mg twice daily, spironolactone 25 mg daily, amiodarone 200 mg twice daily, carvedilol 6.25 mg twice daily and also taking digoxin 125 mcg daily. PAST MEDICAL HISTORY: Chronic systolic heart failure, ischemic and nonischemic cardiomyopathy, single-vessel CAD, total occlusion of right coronary artery by angiogram and congestive heart failure class III status post CALCINER OPERATOR HELPER-D implantation. SOCIAL HISTORY: The patient is . does not currently smoke or drink alcohol. He used to smoke in the past, quit cigarettes completely. FAMILY HISTORY: Noncontributory. PHYSICAL EXAMINATION: GENERAL: Well-nourished, pleasant elderly male. Alert, awake, and in no acute distress. VITAL SIGNS: Blood pressure 113/89, pulse rate is 118, respirations 20, temperature 97.9, room air saturation 97%. HEENT: Head is atraumatic and normocephalic. Eyes, normal. NECK: Supple. Mild JVD is present 4 cm above sternal line. CHEST: Symmetrical. LUNGS: Decreased breath sounds bilaterally, crackles at the base. HEART: Cardiomegaly. left intercostal space. S1 and S2 irregular. 2/6 systolic ejection murmur at the apex. ABDOMEN: Slightly distended. Soft. No organomegaly. EXTREMITIES: No edema. /RECTAL: Not performed. NEUROLOGIC: Normal. DIAGNOSTIC DATA: Electrocardiogram showed AFib with rapid ventricular response. LABORATORY DATA: Showed hemoglobin 16.8. Chemistry panel showed creatinine 1.2, BUN 18, and BMP . IMPRESSION/ASSESSMENT: 1. Acutely decompensated chronic systolic heart failure. 2. Atrial fibrillation with rapid ventricular response. RECOMMENDATIONS: I will increase carvedilol dose to 12.5 mg twice daily and continue amiodarone 200 mg twice daily along with digoxin for the next 2 days, 250 mcg, lower the dose to 125 mcg. If it does not improve, we will probably perform cardiac workup again with echo and cardiac catheterization if necessary. I would like to thank you for referring this patient for cardiovascular evaluation. I will be glad to follow the patient with you. DT: 12:26:56 TT: 13:21:00 Ref: [id number] - TID: [id number]
--- NOTE | 2025-04-23 13:35 | ECHO_ITS ---
Transthoracic Echo Report Ht (in): 64 Wt (lb): 237 Exam Location: Echo Lab Status: Emergency Emergency Care Attendant: Lori Badillo Indications: Procedure Performed: BP: 92 / 64 HR: 87 Technical Quality: Very technically difficult study MEASUREMENTS (Male / Female) Normal Values 2D ECHO LV Diastolic Diameter PLAX 6.0 cm 4.2 - 5.9 / 3.9 - 5.3 cm LV Systolic Diameter PLAX 5.4 cm IVS Diastolic Thickness 1.1 cm 0.6 - 1.0 / 0.6 - 0.9 cm LVPW Diastolic Thickness 0.7 cm 0.6 - 1.0 / 0.6 - 0.9 cm LV Relative Wall Thickness 0.3 LV Ejection Fraction MOD BP 16.0 % >= 55 % LV Cardiac Index MOD BP 1348.0 cm?/min?m? LV Ejection Fraction MOD 4C 15.6 % LV Cardiac Index MOD 4C 1001.3 cm?/min?m? LV Ejection Fraction 4C AL 16.2 % LV Cardiac Index 4C AL 1086.1 cm?/min?m? LV Ejection Fraction MOD 2C 14.1 % LV Cardiac Index MOD 2C 1463.5 cm?/min?m? LV Ejection Fraction 2C AL 16.9 % LV Cardiac Index 2C AL 1809.2 cm?/min?m? LA Volume Index 31.6 cm?/m? 16 - 28 cm?/m? M-MODE Aortic Root Diameter MM 2.2 cm LA Systolic Diameter MM 5.6 cm LA Ao Ratio MM 2.5 AV Cusp Separation MM 2.0 cm DOPPLER AV Peak Velocity 125.0 cm/s AV Peak Gradient 6.3 mmHg AV Mean Gradient 3.0 mmHg AV Velocity Time Integral 24.5 cm LVOT Peak Velocity 54.7 cm/s LVOT Peak Gradient 1.2 mmHg LVOT Velocity Time Integral 10.3 cm MV Area PHT 4.2 cm? MR Peak Velocity 446.0 cm/s MR Peak Gradient 79.6 mmHg Mitral E Point Velocity 113.0 cm/s LV E' Lateral Velocity 7.3 cm/s Mitral E to LV E' Lateral Ratio 15.5 LV E' Septal Velocity 5.0 cm/s Mitral E to LV E' Septal Ratio 22.6 FINDINGS Left Ventricle The left ventricular cavity size is moderately increased. Global left ventricular systolic function is severely decreased. The ejection fraction is visually estimated at 20 %. Right Ventricle The right ventricle is normal in size.the right ventricular systolic function is moderately decreased. Left Atrium The left atrial cavity size is mildly increased. Right Atrium The right atrium is normal by two-dimensional imaging, color flow and Doppler imaging with no structural abnormalities, no thrombus formation present. Atrial Septum The interatrial septum appears normal with no evidence of a shunt. Aorta The aorta is normal by two-dimensional, color flow and Doppler interrogation. Mitral Valve The mitral valve is normal by two-dimensional, color flow and Doppler interrogation. Moderate mitral regurgitation. Aortic Valve The aortic valve is trileaflet and normal by two-dimensional, color flow and Doppler interrogation. There is no significant aortic valve regurgitation. Tricuspid Valve The tricuspid valve is normal by two-dimensional, color flow and Doppler interrogation. There is trace tricuspid valve regurgitation. Pulmonic Valve The pulmonic valve is not well visualized. There is no significant pulmonic valve regurgitation. Vessels The pulmonary artery appears normal. The inferior vena cava pulmonary and hepatic veins appear normal. Pericardium The pericardium is normal by two-dimensional imaging. There is no significant pericardial effusion. CONCLUSIONS Severely dilated LV at 6.5 cm. Severely decreased ejection fraction estimated at 10 to 15%. global hypokinesis and apical akinesis. Normal RV size. Moderately decreased RV systolic function. Mildly dilated LA and mildly dilated RA. Mild to moderate MR and mild. No significant pericardial effusion. Nancy Vergara (Electronically Signed) Final Date: 25 Apr 2025 21:45
--- NOTE | 2025-04-23 14:05 | PD.RESHP ---
Documentation for date of: 04/23/25 [facility] History of Present Illness Chief complaint: chest pressure History of present illness: 64-year-old male with past medical history of ischemic cardiomyopathy, chronic systolic heart failure with reduced ejection fraction 25% status post defibrillator, PCI with stent placement of RCA, circumflex artery, history of dilated cardiomyopathy, COPD, atrial fibrillation, hypertension who presented to the ED due to chest pressure. Patient states that on , 04/21/2025 developed some shortness of breath overnight. Yesterday developed shortness of breath and chest pressure with associated palpitations and then this morning patient developed chest pressure again rated 7 out of 10 nonradiating and feeling a sense of impending doom. Patient also endorses requiring multiple pillows to sleep at night. Cannot lay completely flat. Patient was recently started on digoxin by cardiology services. Denies fever, chills, headaches, abdominal pain, nausea vomiting. ED consulted administrative services specialist and recommended admission. ED course: ED vitals: BP [birth year]/24/1988, HR 118, RR 20, O2 sat 97% on room air ED labs: Mild leukocytosis, polycythemia, ALT 51, BNP 809 UA negative chest x-ray shows some vascular congestion EKG shows some sinus tachycardia. PMH: As noted above PSH appendectomy, pacemaker replacements, 4 stents Family Hx: Denies CAD history, alcohol use disorder in father side. Social: Lives with in [place]. Smokes 1 pack of cigarettes every few days for past 40 years. Drinks socially, denies drug use. Meds: Amiodarone 200 mg twice daily, Bumex 1 mg p.o. daily, carvedilol 12.5 mg twice daily, Eliquis 5 mg twice daily, rosuvastatin 20 mg daily, spironolactone 25 mg daily Allergies: NKDA Exam Vital Signs Temp Pulse Resp BP Pulse Ox O2 Del Method 97.8 F 118 H 20 120/86 H 95 Room Air 04/23/25 12:45 04/23/25 12:45 04/23/25 12:45 04/23/25 12:45 04/23/25 12:45 04/23/25 12:45 Narrative Exam Physical Exam GENERAL: NAD, AAOx3, obese HEENT: Moist mucosa. Eyes open, symmetrical, & clear CARDIO: Heart RRR, no obvious murmurs PULM: No noted coughing/dyspnea CTA B/L, no R/W/R GI: Abdomen soft, nondistended, no pain on palpation. BSx4 SKIN/MSK/EXT: Trace edema bilateral lower extremities, no pain on palpation. Pedal pulses present B/L NEURO: AAOx3, no focal neuro deficits, able to move all 4 extremities Results: Labs 04/24/25 05:06 04/24/25 05:06 Labs: Short CBC 04/23/25 Range/Units 11:19 WBC 11.5 H (3.8-10.6) Thou/mm3 Hgb 16.8 H (13.5-16.0) g/dL Hct 47.1 (41.0-53.0) % Plt Count 210 (140-440) Thou/mm3 BMP 04/23/25 11:19 Sodium 138 Potassium 4.2 Chloride 103 Carbon Dioxide 25.1 BUN 18 Creatinine 1.2 Glucose 110 H Calcium 8.8 Cardiac Enzymes 04/23/25 Range/Units 11:19 Troponin I 0.035 (0.0-0.045) ng/mL Liver Function 04/23/25 Range/Units 11:19 Total Bilirubin 0.7 (0.3-1.2) mg/dL AST 34 (0-34) U/L ALT 51 H (10-49) U/L Alkaline Phosphatase 89 (46-116) U/L Albumin 4.4 (3.4-4.8) gm/dL Urine 04/23/25 Range/Units 11:33 Urine Color Colorless A (Lt Yel-Yel) Urine Clarity Clear (Clear/Hazy) Urine pH 6.0 (5.0-7.0) Ur Specific [place] 1.010 (1.001-1.035) Urine Protein Negative (Neg - Trace) Urine Glucose (UA) Negative (Negative) Quality Measures Quality Measures none Advance care planning discussed with:: patient Medications Home Medications and Allergies Home Medications ?Medication ?Instructions ?Recorded ?Confirmed ?Type amiodarone 200 mg tablet 200 mg PO BID 08/03/23 04/23/25 History apixaban 5 mg tablet (Eliquis) 5 mg PO BID 08/03/23 04/23/25 History bumetanide 1 mg tablet 1 mg PO DAILY 08/03/23 04/23/25 History spironolactone 25 mg tablet 25 mg PO DAILY 08/03/23 04/23/25 History rosuvastatin 40 mg tablet 20 mg PO DAILY 09/22/24 04/23/25 History digoxin 125 mcg (0.125 mg) tablet 0.125 mg PO BID 04/23/25 04/23/25 History Allergies Allergy/AdvReac Type Severity Reaction Status Date / Time No Known Allergies Allergy Verified 04/18/25 17:02 Visit Medications Acetaminophen (Acetaminophen 325 Mg Tablet) 650 mg PO Q6H PRN PRN Reason: Fever >99.5 Stop: 05/23/25 13:29 Acetaminophen (Acetaminophen 325 Mg Tablet) 1,000 mg PO Q6H PRN PRN Reason: PAIN SCALE 1-3 (mild Stop: 05/23/25 13:34 Albuterol/Ipratropium (Albuterol/Ipratropium (Duoneb) Rt Kim 3 Ml Nebu) 3 ml INH Q6HR PRN PRN Reason: SHORTNESS OF BREATH OR WHEEZE Stop: 05/23/25 13:29 Amiodarone HCl (Amiodarone Hcl 200 Mg Tablet) 200 mg PO BID [facility] Stop: 05/23/25 20:59 Atorvastatin Calcium (Atorvastatin Calcium 20 Mg Tablet) 40 mg PO HS [facility] Stop: 05/23/25 20:59 Bumetanide (Bumetanide Inj 0.25 Mg/Ml Vial 4 Ml) 2 mg IVP BIDD [facility] Stop: 05/23/25 17:59 Carvedilol (Carvedilol 12.5 Mg Tablet) 12.5 mg PO BIDWM [facility] Stop: 05/23/25 17:29 Enoxaparin Sodium (Enoxaparin Sod Inj 100 Mg/Ml Syringe) 100 mg SC BID [facility] Stop: 05/07/25 20:59 Ondansetron HCl (Ondansetron Inj 2 Mg/Ml Inj 2 Ml) 4 mg IVP Q6H PRN; Protocol PRN Reason: NAUSEA OR VOMITING Stop: 05/23/25 13:29 Sennosides (Senna Tablet) 1 tab PO QDAY [facility]; Protocol Stop: 05/24/25 08:59 Spironolactone (Spironolactone 25 Mg Tablet) 25 mg PO QDAY [facility] Stop: 05/24/25 08:59 Discontinued Medications Albuterol/Ipratropium (Albuterol/Ipratropium (Duoneb) Rt Kim 3 Ml Nebu) 3 ml INH Q2HR PRN PRN Reason: SHORTNESS OF BREATH OR WHEEZE Stop: 05/23/25 13:29 Bumetanide (Bumetanide Inj 0.25 Mg/Ml Vial 4 Ml) 2 mg IVP X1 ONE Stop: 04/23/25 12:00 Last Admin: 04/23/25 12:09 Dose: 2 mg Digoxin (Digoxin Inj 0.25 Mg/Ml Amp 2 Ml) 0.25 mg IVP X1 ONE Stop: 04/23/25 13:48 Assessment & Plan Plan 64 yr male with PMH of CAD status post 4 stents, HFrEF EF 25%, possible COPD, hypertension denting to ED due to shortness of breath since past couple days, chest pressure and sense of impending doom. #Acute decompensated heart failure exacerbation [EF 20-25%] #Chronic persistent atrial fibrillation #history of ischemic and dilated cardiomyopathy #hx of CAD status post 4 stents #history of ICD implantation with FABRICATION MANAGER-D implantation #Hyperlipidemia #Hypertension Presented with clinical signs such as shortness of breath, dyspnea on exertion, trace bilateral leg swelling, CTA B/L no crackles noted Patient has orthopnea, requiring extra pillows to sleep, woke up suddenly with chest pressure 7/10 nonradiating and sense of impending doom NYHA class: IV CXR: Showing vascular congestion BNP: 809 Last echo: 2022:Dilated cardiomyopathy. Moderately dilated LV. Severe systolic function. Severe global hypokinesis. Estimted EF 20-25%. Normal RV size. Moderately reduced function. Pacing wire present. LA mildly dilated. Moderate MR.Trace TR, PI. CHADVASC:4; 4.8% stroke risk ? Echo ordered ? possible cardiac cath/work up if no improvement in next few days ? Bumex 2 mg IV twice daily ? Spironolactone 25 mg p.o. once daily ? Amiodarone 200 mg twice daily ? Carvedilol 12.5 mg p.o. twice daily ? Lovenox 100 mg subcu twice daily ? Atorvastatin 40 mg p.o. ? Digoxin 0.25 today, 0.125 starting tomorrow per cardio recommendations ? Cardiology consulted, appreciate recommendations ? Keep K>4, Mg>2 ? Provide oxygen as required ? Strict I's and O's ? Fluid restriction #COPD #?DERECK no official diagnosis of COPD or DERECK but states he uses oxygen at home for sleep - DuoNebs as needed Disposition: tele, IV diuresis Fluids: None Feeding: Cardiac diet Thrombo prophylaxis: lovenox Gastric Ulcer prophylaxis: none CODE STATUS: Full code Case discussed with my attending Dr. Javan Vasquez MD PGY-1 Attending Provider Attestation/Addendum ISudha, , attest that I was physically present for the mares portions of the service and evaluated the patient with the resident and I reviewed and discussed the case with the resident and agree with the resident's findings and plans of care as documented above Patient is a 64-year-old male with past medical history of ischemic and dilated cardiomyopathy, CAD status post PCI stent placement in RCA, COPD, A-fib on Eliquis, hypertension who was brought to ED by his daughter due to chest pressure that began this morning. Patient was woken up this morning due to chest discomfort. However, he has had chest discomfort the past 4 days. He is also noted to have tachycardia in the 140s at home when he checks with his blood pressure machine. Patient has been consulting his administrative services specialist past 3 days during which she was started on digoxin and had dose doubled on Friday due to uncontrolled A-fib with RVR. Patient does report that he has had more trouble with sleeping due to shortness of breath and decreased activity. He also endorses having orthopnea. He states that his abdomen appears to be more distended than usual. Patient states that at times he has these feelings of impending doom due to his chest pain. Patient was seen here 4 days ago due to shortness of breath and admitted for acute COPD exacerbation. Patient states that he is a former smoker and quit about 1 month ago. He does use his inhalers and nebulizers at home. Cardiology was called from ED and has seen patient. Recommends admission for acute CHF exacerbation. If patient continues to have symptoms for the next few days, may need cardiac cath. Will admit patient to telemetry for further workup medical management of acute CHF exacerbation. Will switch his Eliquis to full dose Lovenox at this time in anticipation of possible cardiac cath. Will continue with IV diuresis at this time. Heart rate appears to be better controlled with amiodarone and digoxin with heart rate in the 115. Blood pressure appears to be appropriate at time of evaluation. Will continue with cardiac monitoring.
[2025-04-23] MEDS: ACETAMINOPHEN 325 MG TABLET 1000 MG PO (18:08)
[2025-04-23] MEDS: carVEDILOL 12.5 MG TABLET PO (18:08)
[2025-04-23] MEDS: AMIODARONE HCL 200 MG TABLET PO (20:20)
[2025-04-23] MEDS: ATORVASTATIN CALCIUM 20 MG TABLET 40 MG PO (20:20)
[2025-04-23] MEDS: ENOXAPARIN SOD INJ 100 MG/ML SYRINGE SC (20:20)
[2025-04-23] MEDS: MELATONIN 3 MG TABLET 6 MG PO (20:21)
[2025-04-24] VITALS (20 sets, daily range): BP systolic 92–116; BP diastolic 64–82; PULSE 70–120; RESP 13–99; TEMP 36.1–36.6; O2SAT 97–99
--- NOTE | 2025-04-24 00:04 | PC.NURSE ---
called Dr. Shaffer regarding patient's HR fluctuating the lowest 42 to about in the 80s, assessed patient and patient is resting comfortably in bed, asymptomatic no c/o chest pain, per MD to continue to minor patinet, no new orders received.
[2025-04-24] MEDS: ALBUTEROL/IPRATROPIUM (Duoneb) RT SOL 3 ML NEBU INH (01:43)
[2025-04-24 06:02] LABS: Basophils # (Auto) 0.1 Thou/mm3 (0.0-0.2); Basophils % (Auto) 1 % (0-2.5); Eosinophils # (Auto) 0.3 Thou/mm3 (0.0-0.5); Eosinophils % (Auto) 3 % (0-10); Hematocrit 44.1 % (41.0-53.0); Hemoglobin 15.8 g/dL (13.5-16.0); Immature Granulocytes % (Auto) 0 % (0-0); Immature Granulocytes Auto 0.04 Thou/mm3 (0.00-0.00); Lymphocytes # (Auto) 2.8 Thou/mm3 (1.0-4.8); Lymphocytes % (Auto) 30 % (10-50); Mean Corpuscular HGB Conc 35.8 g/dl (31.0-37.0); Mean Corpuscular Hemoglobin 33.6 pg (25.0-35.0); Mean Corpuscular Volume 94 fL (80-100); Monocytes # (Auto) 0.7 Thou/mm3 (0.0-0.8); Monocytes % (Auto) 7 % (0-12); Neutrophils # (Auto) 5.7 Thou/mm3 (1.8-7.7); Neutrophils % (Auto) 60 % (37-80); Nucleated Red Blood Cell % 0 /100 WBC (0); Platelet Count 187 Thou/mm3 (140-440); RDW Standard Deviation 44.3 fL (35.1-43.9); White Blood Count 9.5 Thou/mm3 (3.8-10.6)
[2025-04-24] MEDS: BUMETANIDE INJ 0.25 MG/ML VIAL 4 ML 2 MG IVP ×2 (06:05→18:37)
--- NOTE | 2025-04-24 06:15 | PC.NURSE ---
called Dr. Light regarding patient's BP on the softer side 92/64 but is patient's baseline. Patient to receive morning dose of Bumex, per MD blackman to give dose.
[2025-04-24 06:18] LABS: Alanine Aminotransferase 47 U/L (10-49); Albumin, Serum 4.1 gm/dL (3.4-4.8); Albumin/Globulin Ratio 1.4 (1.2-2.2); Alkaline Phosphatase 83 U/L (46-116); Anion Gap 10 (7-16); Aspartate Amino Transferase 32 U/L (0-34); BUN/Creatinine Ratio 17 Ratio (12-20); Bilirubin,Total 0.7 mg/dL (0.3-1.2); Blood Urea Nitrogen 20 mg/dL (9-23); Calcium 8.6 mg/dL (8.3-10.6); Calcium (Corrected) 8.6 mg/dL (8.5-10.1); Carbon Dioxide 29.2 mMol/L (20.0-31.0); Chloride 101 mMol/L (98-107); Creatinine (Component) 1.2 mg/dL (0.6-1.3); Estimated Creatinine Clearance 67.3 mL/min (>60); Globulin 2.9 gm/dL (2.3-3.5); Glucose 104 mg/dL (74-106); Magnesium 1.9 mg/dL (1.6-2.6); Osmolality,Calculated 282 (275-295); Phosphorous 3.8 mg/dL (2.4-5.1); Potassium 3.7 mMol/L (3.4-5.1); Sodium 140 mMol/L (136-145); Thyroid Stimulating Hormone 1.99 uIU/mL (0.55-4.78); eGFR > 60 See Note
[2025-04-24] MEDS: ENOXAPARIN SOD INJ 100 MG/ML SYRINGE SC ×2 (08:22→20:17)
[2025-04-24] MEDS: POTASSIUM CHLORIDE 20 mEq TABCR PO (08:23)
[2025-04-24] MEDS: DIGOXIN 0.125 MG TABLET PO (08:23)
[2025-04-24] MEDS: carVEDILOL 12.5 MG TABLET PO ×2 (08:23→18:36)
[2025-04-24] MEDS: SPIRONOLACTONE 25 MG TABLET PO (08:24)
[2025-04-24] MEDS: AMIODARONE HCL 200 MG TABLET PO ×2 (08:24→20:17)
[2025-04-24] MEDS: Magnesium Sulfate 2 GM Ivpb 2 GM/50 ML BAG IV (08:24)
[2025-04-24] MEDS: SENNA TABLET 1 TAB PO (08:24)
--- NOTE | 2025-04-24 11:32 | ESPR_ITS ---
Documentation for date of: 04/24/25 Subjective Subjective Interval history: Patient seen today at the bedside found awake, alert, orientedx3. No overnight events reported. Vitals and labs reviewed. States improvement in shortness of breath. Digoxin dose decreased to 125 mcg daily. Will continue with IV diuresis at this time and await further recommendations by cardiology service. Exam Vital Signs Temp Pulse Resp BP Pulse Ox O2 Del Method O2 Flow Rate 97.4 F 84 17 112/73 98 Room Air 2 04/24/25 07:50 04/24/25 08:24 04/24/25 07:50 04/24/25 08:24 04/24/25 07:50 04/24/25 07:50 04/24/25 04:00 Narrative Exam Physical Exam GENERAL: NAD, AAOx3, obese HEENT: Moist mucosa. Eyes open, symmetrical, & clear CARDIO: Heart RRR, no obvious murmurs PULM: No noted coughing/dyspnea CTA B/L, no R/W/R GI: Abdomen soft, nondistended, no pain on palpation. BSx4 SKIN/MSK/EXT: minimal edema bilateral lower extremities, no pain on palpation. Pedal pulses present B/L NEURO: AAOx3, no focal neuro deficits, able to move all 4 extremities Objective Labs 04/24/25 05:06 04/24/25 05:06 Labs: Laboratory Results - last 24 hr 04/23/25 04/23/25 04/24/25 11:19 11:33 05:06 WBC 11.5 H 9.5 RBC 4.94 4.70 Hgb 16.8 H 15.8 Hct 47.1 44.1 MCV 95 94 MCH 34.0 33.6 MCHC 35.7 35.8 RDW Std Deviation 45.2 H 44.3 H Plt Count 210 187 Neut % (Auto) 67 60 Lymph % (Auto) 22 30 [place] % (Auto) 8 7 Eos % (Auto) 2 3 Baso % (Auto) 1 1 Neut # (Auto) 7.7 5.7 Lymph # (Auto) 2.5 2.8 [place] # (Auto) 0.9 H 0.7 Eos # (Auto) 0.3 0.3 Baso # (Auto) 0.1 0.1 Immature Gran # (Auto) 0.06 H 0.04 H Absolute Nucleated RBC 0.00 0.00 Immature Gran % 1 H 0 Nucleated RBC % 0 0 PT 11.7 INR 1.1 APTT 29.8 Sodium 138 140 Potassium 4.2 3.7 D Chloride 103 101 Carbon Dioxide 25.1 29.2 Anion Gap 10 10 BUN 18 20 Creatinine 1.2 1.2 Estim Creat Clear Calc 67.3 67.3 eGFR > 60 > 60 BUN/Creatinine Ratio 15 17 Glucose 110 H 104 Calculated Osmolality 278 282 Calcium 8.8 8.6 Corrected Calcium 8.8 8.6 Phosphorus 3.8 Magnesium 1.9 Total Bilirubin 0.7 0.7 AST 34 32 ALT 51 H 47 Alkaline Phosphatase 89 83 Troponin I 0.035 B-Natriuretic Peptide 809 H* Total Protein 7.2 7.0 Albumin 4.4 4.1 Globulin 2.8 2.9 Albumin/Globulin Ratio 1.6 1.4 TSH 1.99 Ur Collection Type Clean Catch Urine Color Colorless A Urine Clarity Clear Urine pH 6.0 Ur Specific [place] 1.010 Urine Protein Negative Urine Glucose (UA) Negative Urine Ketones Negative Urine Blood Negative Urine Nitrite Negative Urine Bilirubin Negative Urine Urobilinogen (Auto) Negative Ur Leukocyte Esterase Negative Urine RBC < 1 Urine WBC < 1 Ur Squamous Epith Cells 0 Urine Bacteria None Hyaline Casts < 1 Ur Culture Indicated? Not Indicated Quality Measures Quality Measures none Advance care planning discussed with:: patient Assessment & Plan Assessment Current Active Medications: Generic Name Dose Route Start Last Admin Trade Name Freq PRN Reason Stop Dose Admin Acetaminophen 650 mg 04/23/25 13:30 Acetaminophen 325 Mg Tablet PO 05/23/25 13:29 Q6H PRN Fever >99.5 Acetaminophen 1,000 mg 04/23/25 13:35 04/23/25 18:08 Acetaminophen 325 Mg Tablet PO 05/23/25 13:34 1,000 mg Q6H PRN Administration PAIN SCALE 1-3 (mild Albuterol/Ipratropium 3 ml 04/23/25 14:04 04/24/25 01:43 Albuterol/Ipratropium (Duoneb) Rt Kim 3 Ml Nebu INH 05/23/25 13:29 3 ml Q6HR PRN Administration SHORTNESS OF BREATH OR WHEEZE Amiodarone HCl 200 mg 04/23/25 21:00 04/24/25 08:24 Amiodarone Hcl 200 Mg Tablet PO 05/23/25 20:59 200 mg BID YESICA Administration Atorvastatin Calcium 40 mg 04/23/25 21:00 04/23/25 20:20 Atorvastatin Calcium 20 Mg Tablet PO 05/23/25 20:59 40 mg HS YSEICA Administration Bumetanide 2 mg 04/23/25 18:00 04/24/25 06:05 Bumetanide Inj 0.25 Mg/Ml Vial 4 Ml IVP 05/23/25 17:59 2 mg BIDD YESICA Administration Carvedilol 12.5 mg 04/23/25 17:30 04/24/25 08:23 Carvedilol 12.5 Mg Tablet PO 05/23/25 17:29 12.5 mg BIDWM YESICA Administration Digoxin 0.125 mg 04/24/25 09:00 04/24/25 08:23 Digoxin 0.125 Mg Tablet PO 05/24/25 08:59 0.125 mg QDAY YESICA Administration Enoxaparin Sodium 100 mg 04/23/25 21:00 04/24/25 08:22 Enoxaparin Sod Inj 100 Mg/Ml Syringe SC 05/07/25 20:59 100 mg BID YESICA Administration Melatonin 6 mg 04/23/25 21:00 04/23/25 20:21 Melatonin 3 Mg Tablet PO 05/23/25 20:59 6 mg HS YESICA Administration Ondansetron HCl 4 mg 04/23/25 13:30 Ondansetron Inj 2 Mg/Ml Inj 2 Ml IVP 05/23/25 13:29 Q6H PRN NAUSEA OR VOMITING Protocol Sennosides 1 tab 04/24/25 09:00 04/24/25 08:24 Senna Tablet PO 05/24/25 08:59 1 tab QDAY YESICA Administration Protocol Spironolactone 25 mg 04/24/25 09:00 04/24/25 08:24 Spironolactone 25 Mg Tablet PO 05/24/25 08:59 25 mg QDAY YESICA Administration Plan 64 yr male with PMH of CAD status post 4 stents, HFrEF EF 25%, possible COPD, hypertension denting to ED due to shortness of breath since past couple days, chest pressure and sense of impending doom. 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 Moderately dilated LV. Severe systolic function. Severe global hypokinesis. Estimted EF 20-25%. Normal RV size. Moderately reduced function. Pacing wire present. LA mildly dilated. Moderate MR.Trace TR, PI. CHADVASC:4; 4.8% stroke risk ? Bumex 2 mg IV twice daily ? Spironolactone 25 mg p.o. once daily - Carvedilol 12.5mg PO BID - Patient unable to tolerate Entresto in the past ? Cardiology consulted, appreciate recommendations ? Keep K>4, Mg>2 ? Provide oxygen as required ? Strict I's and O's ? Fluid restriction 2000ml/day ? Pending echo ? possible cardiac cath/work up if no improvement in next few days #Afib with RVR, resolved #Chronic Persistent Afib ? Amiodarone 200 mg twice daily ? Carvedilol 12.5 mg p.o. twice daily ? On eliquis at home, but will switch to Lovenox 100 mg subcu twice daily in anticipation of possible cardiac cath if patient does not improve ? Loaded with 250mcg of Digoxin on presentation and will decrease to Digoxin 125mcg as per cardio recommendations #Hypertension - Continue antihypertensives and diuretics as per above #Hyperlipidemia ? Continue Atorvastatin 40 mg p.o. daily #COPD #?DERECK no official diagnosis of COPD or DERECK but states he uses oxygen at home for sleep - Supplemental O2 as needed - DuoNebs as needed Disposition: tele, IV diuresis Fluids: None Feeding: Cardiac diet Thrombo prophylaxis: lovenox Gastric Ulcer prophylaxis: none CODE STATUS: Full code Case discussed with my attending Dr. Javan Vasquez MD PGY-1 Attending Provider Attestation/Addendum Sudha Alberts DO, attest that I was physically present for the mares portions of the service and evaluated the patient with the resident and I reviewed and discussed the case with the resident and agree with the resident's findings and plans of care as documented above Patient seen and eval this a.m. Continues to have some shortness of breath. Patient is currently on 2 L nasal cannula for comfort. Patient appears to have some slight improvement in lower extremity edema and abdominal swelling. Heart rate is now well-controlled in the 80s and normotensive. Will decrease digoxin to 125 mics daily as per cardiology recommendation. Will continue with IV diuresis. Patient states he has some occasional chest pain, but much improved in comparison to presentation. Lungs are clear to auscultation bilaterally otherwise. Trace peripheral edema.
[2025-04-24] MEDS: ATORVASTATIN CALCIUM 20 MG TABLET 40 MG PO (20:17)
[2025-04-24] MEDS: MELATONIN 3 MG TABLET 6 MG PO (20:17)
[2025-04-25] VITALS (14 sets, daily range): BP systolic 91–118; BP diastolic 61–86; PULSE 12–124; RESP 14–711; TEMP 36–36.2; O2SAT 96–100
[2025-04-25] MEDS: BUMETANIDE INJ 0.25 MG/ML VIAL 4 ML 2 MG IVP ×2 (05:17→18:00)
[2025-04-25 06:39] LABS: Basophils # (Auto) 0.1 Thou/mm3 (0.0-0.2); Basophils % (Auto) 1 % (0-2.5); Eosinophils # (Auto) 0.2 Thou/mm3 (0.0-0.5); Eosinophils % (Auto) 2 % (0-10); Hemoglobin 16.2 g/dL (13.5-16.0); Immature Granulocytes % (Auto) 1 % (0-0); Immature Granulocytes Auto 0.06 Thou/mm3 (0.00-0.00); Lymphocytes # (Auto) 3.1 Thou/mm3 (1.0-4.8); Lymphocytes % (Auto) 28 % (10-50); Mean Corpuscular Volume 95 fL (80-100); Monocytes # (Auto) 0.8 Thou/mm3 (0.0-0.8); Monocytes % (Auto) 8 % (0-12); Neutrophils # (Auto) 6.7 Thou/mm3 (1.8-7.7); Neutrophils % (Auto) 61 % (37-80); Nucleated Red Blood Cell % 0 /100 WBC (0); Platelet Count 208 Thou/mm3 (140-440); RDW Standard Deviation 44.5 fL (35.1-43.9); Red Blood Count 4.76 Miln/mm3 (4.50-5.90)
[2025-04-25 07:17] LABS: Alanine Aminotransferase 49 U/L (10-49); Albumin/Globulin Ratio 1.6 (1.2-2.2); Alkaline Phosphatase 81 U/L (46-116); Anion Gap 12 (7-16); Aspartate Amino Transferase 34 U/L (0-34); BUN/Creatinine Ratio 17 Ratio (12-20); Bilirubin,Total 0.6 mg/dL (0.3-1.2); Blood Urea Nitrogen 22 mg/dL (9-23); Calcium 8.3 mg/dL (8.3-10.6); Calcium (Corrected) 8.3 mg/dL (8.5-10.1); Carbon Dioxide 28.5 mMol/L (20.0-31.0); Chloride 104 mMol/L (98-107); Creatinine (Component) 1.3 mg/dL (0.6-1.3); Estimated Creatinine Clearance 62.1 mL/min (>60); Globulin 2.5 gm/dL (2.3-3.5); Glucose 101 mg/dL (74-106); Osmolality,Calculated 290 (275-295); Phosphorous 3.5 mg/dL (2.4-5.1); Potassium 3.8 mMol/L (3.4-5.1); Sodium 144 mMol/L (136-145); Total Protein 6.5 gm/dL (5.7-8.2); eGFR > 60 See Note
[2025-04-25] MEDS: ENOXAPARIN SOD INJ 100 MG/ML SYRINGE SC ×2 (08:29→20:46)
[2025-04-25] MEDS: DIGOXIN 0.125 MG TABLET PO (08:30)
[2025-04-25] MEDS: AMIODARONE HCL 200 MG TABLET PO ×2 (08:30→20:46)
[2025-04-25] MEDS: SENNA TABLET 1 TAB PO (08:30)
[2025-04-25] MEDS: carVEDILOL 12.5 MG TABLET PO ×2 (08:30→17:58)
[2025-04-25] MEDS: SPIRONOLACTONE 25 MG TABLET PO (08:30)
--- NOTE | 2025-04-25 08:57 | PC.SS ---
Initial assessment completed with patient at bedside. Patient confirmed his demographic information. Patient resides in a home with his spouse. Patient?s surrogate medical decisionmaker is his spouse, Maribel Celis [phone]. Patient is independent with ADL completion and ambulation. Patient utilizes 2.5L of oxygen nightly. Preferred pharmacy: [facility]. PCP: [facility] Next of Kin: Spouse, Maribel Celis [phone] D/C Plan: Home, daughter to provide transportation
--- NOTE | 2025-04-25 11:32 | ESPR_ITS ---
Documentation for date of: 04/25/25 Subjective Subjective Interval history: 04/25/2025: No acute overnight events to report. Patient seen and assessed in hospital bed reporting mild improvement in presenting symptoms; however, continues to have some shortness of breath but denies having any other concerning cardiac symptoms. Patient's heart rate does fluctuate from 80s?90s while relaxed to 110s?120s when ambulating. Cardiology aware and following the patient closely; moreover, recommendations to continue current management with possible left and right heart catheterization tentatively scheduled for 04/26. Will continue to monitor the patient and expect discharge within the next 24 to 48 hours. Exam Vital Signs Temp Pulse Resp BP Pulse Ox O2 Del Method O2 Flow Rate 96.8 F 104 H 19 111/86 H 100 Room Air 2 04/25/25 08:00 04/25/25 09:00 04/25/25 09:00 04/25/25 08:30 04/25/25 09:00 04/25/25 08:00 04/24/25 04:00 FiO2 2 04/25/25 09:00 Narrative Exam Physical Exam: GENERAL: Awake, answering questions appropriately, appears stated age, morbidly obese HEENT: Moist mucosa. Eyes open, symmetrical, & clear CARDIO: Heart RRR, no obvious murmurs PULM: No noted coughing/dyspnea CTA B/L, no R/W/R GI: Abdomen soft, nondistended, no pain on palpation. BSx4 SKIN/MSK/EXT: minimal nonpitting edema bilateral lower extremities, no pain on palpation. Pedal pulses present B/L NEURO: AAOx3, no focal neuro deficits, able to move all 4 extremities Objective Labs 04/26/25 04:56 04/26/25 04:56 Labs: Laboratory Results - last 24 hr 04/25/25 05:00 WBC 11.0 H RBC 4.76 Hgb 16.2 H Hct 45.0 MCV 95 MCH 34.0 MCHC 36.0 RDW Std Deviation 44.5 H Plt Count 208 Neut % (Auto) 61 Lymph % (Auto) 28 [place] % (Auto) 8 Eos % (Auto) 2 Baso % (Auto) 1 Neut # (Auto) 6.7 Lymph # (Auto) 3.1 [place] # (Auto) 0.8 Eos # (Auto) 0.2 Baso # (Auto) 0.1 Immature Gran # (Auto) 0.06 H Absolute Nucleated RBC 0.00 Immature Gran % 1 H Nucleated RBC % 0 Sodium 144 Potassium 3.8 Chloride 104 Carbon Dioxide 28.5 Anion Gap 12 BUN 22 Creatinine 1.3 Estim Creat Clear Calc 62.1 eGFR > 60 BUN/Creatinine Ratio 17 Glucose 101 Calculated Osmolality 290 Calcium 8.3 Corrected Calcium 8.3 L Phosphorus 3.5 Magnesium 2.0 Total Bilirubin 0.6 AST 34 ALT 49 Alkaline Phosphatase 81 Total Protein 6.5 Albumin 4.0 Globulin 2.5 Albumin/Globulin Ratio 1.6 Quality Measures Quality Measures none Advance care planning discussed with:: patient Assessment & Plan Assessment Current Active Medications: Generic Name Dose Route Start Last Admin Trade Name Freq PRN Reason Stop Dose Admin Acetaminophen 650 mg 04/23/25 13:30 Acetaminophen 325 Mg Tablet PO 05/23/25 13:29 Q6H PRN Fever >99.5 Acetaminophen 1,000 mg 04/23/25 13:35 04/23/25 18:08 Acetaminophen 325 Mg Tablet PO 05/23/25 13:34 1,000 mg Q6H PRN Administration PAIN SCALE 1-3 (mild Albuterol/Ipratropium 3 ml 04/23/25 14:04 04/24/25 01:43 Albuterol/Ipratropium (Duoneb) Rt Kim 3 Ml Nebu INH 05/23/25 13:29 3 ml Q6HR PRN Administration SHORTNESS OF BREATH OR WHEEZE Amiodarone HCl 200 mg 04/23/25 21:00 04/25/25 08:30 Amiodarone Hcl 200 Mg Tablet PO 05/23/25 20:59 200 mg BID YESICA Administration Atorvastatin Calcium 40 mg 04/23/25 21:00 04/24/25 20:17 Atorvastatin Calcium 20 Mg Tablet PO 05/23/25 20:59 40 mg HS YESICA Administration Bumetanide 2 mg 04/23/25 18:00 04/25/25 05:17 Bumetanide Inj 0.25 Mg/Ml Vial 4 Ml IVP 05/23/25 17:59 2 mg BIDD YESICA Administration Carvedilol 12.5 mg 04/23/25 17:30 04/25/25 08:30 Carvedilol 12.5 Mg Tablet PO 05/23/25 17:29 12.5 mg BIDWM YESICA Administration Digoxin 0.125 mg 04/24/25 09:00 04/25/25 08:30 Digoxin 0.125 Mg Tablet PO 05/24/25 08:59 0.125 mg QDAY YESICA Administration Enoxaparin Sodium 100 mg 04/23/25 21:00 04/25/25 08:29 Enoxaparin Sod Inj 100 Mg/Ml Syringe SC 05/07/25 20:59 100 mg BID YESICA Administration Ondansetron HCl 4 mg 04/23/25 13:30 Ondansetron Inj 2 Mg/Ml Inj 2 Ml IVP 05/23/25 13:29 Q6H PRN NAUSEA OR VOMITING Protocol Sennosides 1 tab 04/24/25 09:00 04/25/25 08:30 Senna Tablet PO 05/24/25 08:59 1 tab QDAY YESICA Administration Protocol Spironolactone 25 mg 04/24/25 09:00 04/25/25 08:30 Spironolactone 25 Mg Tablet PO 05/24/25 08:59 25 mg QDAY YESICA Administration Plan 64 yr male with PMH of CAD status post 4 stents, HFrEF EF 25%, possible COPD, hypertension denting to ED due to shortness of breath since past couple days, chest pressure and sense of impending doom. 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 Moderately dilated LV. Severe systolic function. Severe global hypokinesis. Estimted EF 20-25%. Normal RV size. Moderately reduced function. Pacing wire present. LA mildly dilated. Moderate MR.Trace TR, PI. Good response to diuretics with 2.9 L of urine output over 24 hours, net -1.5 L Plan: Cardiology consulted, appreciate recommendations Tentatively scheduled left heart cath on 04/26 Continue Bumex 2 mg IV twice daily Continue spironolactone 25 mg p.o. once daily Continue carvedilol 12.5mg PO BID Keep K>4, Mg>2 Provide oxygen as required Strict I's and O's Fluid restriction 2000ml/day Echo pending read #Afib with RVR, resolved #Chronic Persistent Afib CHADVASC of 4; 4.8% stroke risk Patient on amiodarone 200 mg twice daily, Carvedilol 12.5 mg p.o. twice daily On eliquis at home, but will switch to Lovenox 100 mg subcu twice daily in anticipation of possible cardiac cath if patient does not improve Loaded with 250mcg of Digoxin on presentation and later decreased to Digoxin 125mcg as per cardio recommendations Current heart rates between 80s and 90s when resting, 110s to 120s when ambulating Plan: Continue digoxin 125 mcg quality assurance monitor final #Hypertension Chronic medical condition, currently has soft blood pressures Plan: Continue antihypertensives and diuretics as per above #Hyperlipidemia Patient on home atorvastatin 40 mg p.o. daily Plan: Continue home medication #COPD #Possible obstructive sleep apnea no official diagnosis of COPD or DERECK but states he uses oxygen at home only during sleep Plan: Supplemental O2 as needed DuoNebs as needed Hospital Management: Disposition: Continue to [facility], tentatively scheduled left and right heart catheterization on 04/26 Lines: PIV Diet: Cardiac diet DVT prophylaxis: lovenox GI prophylaxis: none Code: Full Patient seen and assessed with attending Dr. Javan Holguin, PGY-1 Attending Provider Attestation/Addendum Sudha Alberts, , attest that I was physically present for the mares portions of the service and evaluated the patient with the resident and I reviewed and discussed the case with the resident and agree with the resident's findings and plans of care as documented above Patient seen and evaluated this AM. He states he continues to have some shortness of breath when laying flat. Heart rate remains between 80s at rest and 120s upon exertion. Plan for Left and right heart catheter per cardiology in AM. Will continue with IV diuresis. Patient denies any chest pain otherwise.
--- NOTE | 2025-04-25 14:37 | PC.SS ---
rounding note: pt requires at least one more day monitoring
[2025-04-25] MEDS: ATORVASTATIN CALCIUM 20 MG TABLET 40 MG PO (20:46)
[2025-04-25] MEDS: hydrOXYzine HCL 25 MG TABLET PO (20:47)
[2025-04-26] VITALS (23 sets, daily range): BP systolic 96–132; BP diastolic 50–92; PULSE 70–112; RESP 12–99; TEMP 36.1–36.8; O2SAT 93–99
[2025-04-26] MEDS: BUMETANIDE INJ 0.25 MG/ML VIAL 4 ML 2 MG IVP (05:32)
[2025-04-26 05:52] LABS: Basophils # (Auto) 0.1 Thou/mm3 (0.0-0.2); Basophils % (Auto) 1 % (0-2.5); Eosinophils # (Auto) 0.2 Thou/mm3 (0.0-0.5); Eosinophils % (Auto) 2 % (0-10); Hematocrit 44.7 % (41.0-53.0); Immature Granulocytes % (Auto) 0 % (0-0); Immature Granulocytes Auto 0.05 Thou/mm3 (0.00-0.00); Lymphocytes # (Auto) 3.6 Thou/mm3 (1.0-4.8); Lymphocytes % (Auto) 32 % (10-50); Mean Corpuscular HGB Conc 35.8 g/dl (31.0-37.0); Mean Corpuscular Hemoglobin 33.9 pg (25.0-35.0); Mean Corpuscular Volume 95 fL (80-100); Monocytes % (Auto) 9 % (0-12); Neutrophils # (Auto) 6.3 Thou/mm3 (1.8-7.7); Neutrophils % (Auto) 56 % (37-80); Nucleated Red Blood Cell % 0 /100 WBC (0); Platelet Count 177 Thou/mm3 (140-440); RDW Standard Deviation 44.4 fL (35.1-43.9); Red Blood Count 4.72 Miln/mm3 (4.50-5.90); White Blood Count 11.2 Thou/mm3 (3.8-10.6)
[2025-04-26 06:25] LABS: Alanine Aminotransferase 52 U/L (10-49); Albumin, Serum 4.1 gm/dL (3.4-4.8); Albumin/Globulin Ratio 1.5 (1.2-2.2); Alkaline Phosphatase 77 U/L (46-116); Anion Gap 9 (7-16); Aspartate Amino Transferase 35 U/L (0-34); BUN/Creatinine Ratio 16 Ratio (12-20); Bilirubin,Total 0.7 mg/dL (0.3-1.2); Blood Urea Nitrogen 22 mg/dL (9-23); Calcium 9.4 mg/dL (8.3-10.6); Calcium (Corrected) 9.4 mg/dL (8.5-10.1); Chloride 100 mMol/L (98-107); Creatinine (Component) 1.4 mg/dL (0.6-1.3); Estimated Creatinine Clearance 57.7 mL/min (>60); Globulin 2.8 gm/dL (2.3-3.5); Glucose 103 mg/dL (74-106); Magnesium 2.2 mg/dL (1.6-2.6); Osmolality,Calculated 282 (275-295); Phosphorous 3.5 mg/dL (2.4-5.1); Potassium 3.8 mMol/L (3.4-5.1); Sodium 140 mMol/L (136-145); Total Protein 6.9 gm/dL (5.7-8.2); eGFR 55 See Note
[2025-04-26 08:41] LABS: INR 1.1 (0.9-1.3); Partial Thromboplastin Time 35.3 Seconds (22.0-36.0); Prothrombin Time 11.9 Seconds (9.0-12.2)
--- NOTE | 2025-04-26 09:23 | ESPR_ITS ---
Documentation for date of: 04/26/25 Subjective Subjective Interval history: 04/26/2025: No acute overnight events to report. Patient was moved to cardiac Lead Qa Analyst for right and left heart catheterization with cardiology team. Will follow-up with the patient after he returns back from cardiac cath. Pending cardiology recommendations regarding patient's severely reduced ejection fraction, echo shows EF of 10-15% with global hypokinesis and apical akinesis. Exam Vital Signs Temp Pulse Resp BP Pulse Ox O2 Del Method O2 Flow Rate 97.2 F 90 18 99/63 93 L Room Air 2 04/26/25 08:34 04/26/25 08:34 04/26/25 08:34 04/26/25 08:34 04/26/25 08:34 04/26/25 08:34 04/26/25 04:00 FiO2 2 04/25/25 09:00 Narrative Exam Physical Exam: GENERAL: Awake, answering questions appropriately, appears stated age, morbidly obese HEENT: Moist mucosa. Eyes open, symmetrical, & clear CARDIO: Heart RRR, no obvious murmurs PULM: No noted coughing/dyspnea CTA B/L, no R/W/R GI: Abdomen soft, nondistended, no pain on palpation. BSx4 SKIN/MSK/EXT: minimal nonpitting edema bilateral lower extremities, no pain on palpation. Pedal pulses present B/L NEURO: AAOx3, no focal neuro deficits, able to move all 4 extremities Objective Labs 04/26/25 04:56 04/26/25 04:56 Labs: Laboratory Results - last 24 hr 04/26/25 04:56 WBC 11.2 H RBC 4.72 Hgb 16.0 Hct 44.7 MCV 95 MCH 33.9 MCHC 35.8 RDW Std Deviation 44.4 H Plt Count 177 D Neut % (Auto) 56 Lymph % (Auto) 32 [place] % (Auto) 9 Eos % (Auto) 2 Baso % (Auto) 1 Neut # (Auto) 6.3 Lymph # (Auto) 3.6 [place] # (Auto) 1.0 H Eos # (Auto) 0.2 Baso # (Auto) 0.1 Immature Gran # (Auto) 0.05 H Absolute Nucleated RBC 0.00 Immature Gran % 0 Nucleated RBC % 0 PT 11.9 INR 1.1 APTT 35.3 Sodium 140 Potassium 3.8 Chloride 100 Carbon Dioxide 31.0 Anion Gap 9 BUN 22 Creatinine 1.4 H Estim Creat Clear Calc 57.7 L eGFR 55 L BUN/Creatinine Ratio 16 Glucose 103 Calculated Osmolality 282 Calcium 9.4 Corrected Calcium 9.4 Phosphorus 3.5 Magnesium 2.2 Total Bilirubin 0.7 AST 35 H ALT 52 H Alkaline Phosphatase 77 Total Protein 6.9 Albumin 4.1 Globulin 2.8 Albumin/Globulin Ratio 1.5 Quality Measures Quality Measures none Advance care planning discussed with:: patient Assessment & Plan Assessment Current Active Medications: Generic Name Dose Route Start Last Admin Trade Name Freq PRN Reason Stop Dose Admin Acetaminophen 650 mg 04/23/25 13:30 Acetaminophen 325 Mg Tablet PO 05/23/25 13:29 Q6H PRN Fever >99.5 Acetaminophen 1,000 mg 04/23/25 13:35 04/23/25 18:08 Acetaminophen 325 Mg Tablet PO 05/23/25 13:34 1,000 mg Q6H PRN Administration PAIN SCALE 1-3 (mild Albuterol/Ipratropium 3 ml 04/23/25 14:04 04/24/25 01:43 Albuterol/Ipratropium (Duoneb) Rt Kim 3 Ml Nebu INH 05/23/25 13:29 3 ml Q6HR PRN Administration SHORTNESS OF BREATH OR WHEEZE Amiodarone HCl 200 mg 04/23/25 21:00 04/25/25 20:46 Amiodarone Hcl 200 Mg Tablet PO 05/23/25 20:59 200 mg BID YESICA Administration Atorvastatin Calcium 40 mg 04/23/25 21:00 04/25/25 20:46 Atorvastatin Calcium 20 Mg Tablet PO 05/23/25 20:59 40 mg HS YESICA Administration Bumetanide 2 mg 04/23/25 18:00 04/26/25 05:32 Bumetanide Inj 0.25 Mg/Ml Vial 4 Ml IVP 05/23/25 17:59 2 mg BIDD YESICA Administration Carvedilol 12.5 mg 04/23/25 17:30 04/25/25 17:58 Carvedilol 12.5 Mg Tablet PO 05/23/25 17:29 12.5 mg BIDWM YESICA Administration Digoxin 0.125 mg 04/24/25 09:00 04/25/25 08:30 Digoxin 0.125 Mg Tablet PO 05/24/25 08:59 0.125 mg QDAY YESICA Administration Enoxaparin Sodium 100 mg 04/23/25 21:00 04/25/25 20:46 Enoxaparin Sod Inj 100 Mg/Ml Syringe SC 05/07/25 20:59 100 mg BID YESICA Administration Ondansetron HCl 4 mg 04/23/25 13:30 Ondansetron Inj 2 Mg/Ml Inj 2 Ml IVP 05/23/25 13:29 Q6H PRN NAUSEA OR VOMITING Protocol Sennosides 1 tab 04/24/25 09:00 04/25/25 08:30 Senna Tablet PO 05/24/25 08:59 1 tab QDAY YESICA Administration Protocol Spironolactone 25 mg 04/24/25 09:00 04/25/25 08:30 Spironolactone 25 Mg Tablet PO 05/24/25 08:59 25 mg QDAY YESICA Administration Plan 64 yr male with PMH of CAD status post 4 stents, HFrEF EF 25%, possible COPD, hypertension denting to ED due to shortness of breath since past couple days, chest pressure and sense of impending doom. 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 Moderately dilated LV. Severe systolic function. Severe global hypokinesis. Estimted EF 20-25%. Normal RV size. Moderately reduced function. Pacing wire present. LA mildly dilated. Moderate MR.Trace TR, PI. Good response to diuretics with 2.9 L of urine output over 24 hours, net -1.5 L Plan: Cardiology consulted, appreciate recommendations Tentatively scheduled left heart cath on 04/26 Continue Bumex 2 mg IV twice daily Continue spironolactone 25 mg p.o. once daily Continue carvedilol 12.5mg PO BID Keep K>4, Mg>2 Provide oxygen as required Strict I's and O's Fluid restriction 2000ml/day Echo pending read #Afib with RVR, resolved #Chronic Persistent Afib CHADVASC of 4; 4.8% stroke risk Patient on amiodarone 200 mg twice daily, Carvedilol 12.5 mg p.o. twice daily On eliquis at home, but will switch to Lovenox 100 mg subcu twice daily in anticipation of possible cardiac cath if patient does not improve Loaded with 250mcg of Digoxin on presentation and later decreased to Digoxin 125mcg as per cardio recommendations Current heart rates between 80s and 90s when resting, 110s to 120s when ambulating Plan: Continue digoxin 125 mcg quality assurance monitor final #Hypertension Chronic medical condition, currently has soft blood pressures Plan: Continue antihypertensives and diuretics as per above #Hyperlipidemia Patient on home atorvastatin 40 mg p.o. daily Plan: Continue home medication #COPD #Possible obstructive sleep apnea no official diagnosis of COPD or DERECK but states he uses oxygen at home only during sleep Plan: Supplemental O2 as needed DuoNebs as needed Hospital Management: Disposition: Continue to [facility], tentatively scheduled left and right heart catheterization on 04/26 Lines: PIV Diet: Cardiac diet DVT prophylaxis: lovenox GI prophylaxis: none Code: Full Patient seen and assessed with attending Dr. Javan Holguin, PGY-1 Attending Provider Attestation/Addendum Sudha Alberts DO, attest that I was physically present for the mares portions of the service and evaluated the patient with the resident and I reviewed and discussed the case with the resident and agree with the resident's findings and plans of care as documented above Cardiac cath done this morning showing Ischemic cardiomyopathy, chronic systolic heart failure, ejection fraction of 15-20%. Normal right heart pressures and normal end diastolic pressure as well as wedge pressures. Well-treated heart failure. No evidence of pulmonary hypertension. 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 Patient was seen and evaluated in the afternoon following cardiac cath and eager to go home. Patient aware of cath findings. Cardiology recommends medical management. Medication reconciliation reviewed in detail with patient, as well as his over the phone. Patient states that he had dizziness in the past from entresto. Discussed fall precautions and bleeding risks wtih patient while on eliquis. 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 Patient is otherwise stable for discharge.
--- NOTE | 2025-04-26 10:16 | PC.SS ---
rounding note: Patient pending heart cath today.
--- NOTE | 2025-04-26 12:30 | PC.NURSE ---
0946 patient is awake, alert, breathing unlabored, s/p LHC and RHC by Dr. Warner, TR band present to right wrist, no bleeding or hematoma noted. Gauze and tegaerm present to right groin, no bleeding or hematoma noted. Report received from Mira BARR, patient to recovery for 3 hours. 1040 1ml air removed from TR band since hemostasis time 0935 [id number] TR band removed, no bleeding or hematoma noted, site covered with gauze and tegaderm 1230 report given to Ainsley BARR who will discharge patient back to room [id number]
--- NOTE | 2025-04-26 12:55 | PC.NURSE ---
Patient taken to floor, to room, via gurney. Insertion site clean, dry and intact. No complaints or signs or symptoms of distress, patient sat up in gurney and transferred to bed walking with myself assisting. Bed in low position and table at bedside, call light withing reach. Nurse made aware patient in the room/
[2025-04-26] MEDS: carVEDILOL 12.5 MG TABLET PO ×2 (13:01→16:55)
[2025-04-26] MEDS: AMIODARONE HCL 200 MG TABLET PO (13:03)
[2025-04-26] MEDS: DIGOXIN 0.125 MG TABLET PO (13:03)
[2025-04-26] MEDS: SENNA TABLET 1 TAB PO (13:03)
[2025-04-26] MEDS: SPIRONOLACTONE 25 MG TABLET PO (13:04)
--- NOTE | 2025-04-26 13:23 | ESPR_ITS ---
<Statement entered by Mark Warner MD - 04/27/25 20:11> I personally examined and evaluated the patient patient appears to be clinically improving significantly underwent cardiac evaluation currently reviewed can be discharged home I will see the patient for follow-up as an outpatient tomorrow Documentation for date of: 04/26/25 Subjective Subjective Interval history: Patient is a 64 years old male with PMH of CAD s/p 4 stents, HFrEF EF 25%, possible COPD, hypertension presented to the ED due to shortness of breath and chest pressure for several days. Chest pain woke him up at night and he had a feeling of impending doom. Hes SOB was progressively getting worse over the last couple of weeks. He is taking Bumex 1 mg daily at home as well, as Coreg 6.25 mg BID, digoxin 0.125 mcg BID, spironolactone 25 mg daily. Labs showed BNP 809, negative troponin I. CXR showed vascular congestion. EKG showed paced rhythm. Patient was admitted for further management and cardiology was consulted. He was started on Bumex 2 mg IV BID and Coreg was increased to 12.5 mg BID. His UO was appropriate with net negative fluid balance 1700cc yesterday. He was given loading dose of digoxin and is now on 0.125mcg BID. Repeat echo showed worsening cardiac functioning with severely dilated LV at 6.5 cm, severely decreased ejection fraction estimated at 10 to 15%, global hypokinesis and apical akinesis. He was seen and evaluated at the bedside today. He reports no chest pain or pressure episodes since yesterday. His SOB is improving. He underwent coronary angiography today showing chronic systolic heart failure, ejection fraction of 15-20%, Normal right heart pressures and normal end diastolic pressure as well as wedge pressures. No evidence of pulmonary hypertension. 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 Primary team set for discharge patient today. Recommended to continue Coreg 12.5 mg twice daily, increase dose of Bumex to 2 mg daily, continue spironolactone 25 mg daily, start on Entresto half a tablet twice daily. Continue home Eliquis, digoxin and amiodarone. Exam Vital Signs Temp Pulse Resp BP Pulse Ox O2 Del Method O2 Flow Rate 97.4 F 92 16 113/80 95 Room Air 2 04/26/25 12:00 04/26/25 13:04 04/26/25 12:34 04/26/25 13:04 04/26/25 12:34 04/26/25 12:34 04/26/25 12:00 FiO2 2 04/26/25 12:00 Narrative Exam Gen: Well-developed and well-nourished male. HEENT: NCAT, PERRLA, EOMI, MMM, anicteric conjunctivae, poor dentition. CVS: normal S1 and S2. RRR. No M/R/G. Resp: CTA B/L. No rhonchi, rales, crackles or wheezing. Abd: soft, obese, non-tender, non-distended. BS+ in all 4 quadrants. MSK: Good ROM in BUE & BLE. No rash. 1+ pitting edema BLE. Neuro: CN II-XII grossly intact. Strength 5/5 in BUE & BLE. Alert and oriented x3. Psych: appropriate mood and affect. Objective Labs 04/26/25 04:56 04/26/25 04:56 Labs: Laboratory Results - last 24 hr 04/26/25 04:56 WBC 11.2 H RBC 4.72 Hgb 16.0 Hct 44.7 MCV 95 MCH 33.9 MCHC 35.8 RDW Std Deviation 44.4 H Plt Count 177 D Neut % (Auto) 56 Lymph % (Auto) 32 Calloway % (Auto) 9 Eos % (Auto) 2 Baso % (Auto) 1 Neut # (Auto) 6.3 Lymph # (Auto) 3.6 Calloway # (Auto) 1.0 H Eos # (Auto) 0.2 Baso # (Auto) 0.1 Immature Gran # (Auto) 0.05 H Absolute Nucleated RBC 0.00 Immature Gran % 0 Nucleated RBC % 0 PT 11.9 INR 1.1 APTT 35.3 Sodium 140 Potassium 3.8 Chloride 100 Carbon Dioxide 31.0 Anion Gap 9 BUN 22 Creatinine 1.4 H Estim Creat Clear Calc 57.7 L eGFR 55 L BUN/Creatinine Ratio 16 Glucose 103 Calculated Osmolality 282 Calcium 9.4 Corrected Calcium 9.4 Phosphorus 3.5 Magnesium 2.2 Total Bilirubin 0.7 AST 35 H ALT 52 H Alkaline Phosphatase 77 Total Protein 6.9 Albumin 4.1 Globulin 2.8 Albumin/Globulin Ratio 1.5 Quality Measures Quality Measures VTE prophylaxis Advance care planning discussed with:: patient Assessment & Plan Assessment Current Active Medications: Generic Name Dose Route Start Last Admin Trade Name Freq PRN Reason Stop Dose Admin Acetaminophen 650 mg 04/23/25 13:30 Acetaminophen 325 Mg Tablet PO 05/23/25 13:29 Q6H PRN Fever >99.5 Acetaminophen 1,000 mg 04/23/25 13:35 04/23/25 18:08 Acetaminophen 325 Mg Tablet PO 05/23/25 13:34 1,000 mg Q6H PRN Administration PAIN SCALE 1-3 (mild Albuterol/Ipratropium 3 ml 04/23/25 14:04 04/24/25 01:43 Albuterol/Ipratropium (Duoneb) Rt Kim 3 Ml Nebu INH 05/23/25 13:29 3 ml Q6HR PRN Administration SHORTNESS OF BREATH OR WHEEZE Amiodarone HCl 200 mg 04/23/25 21:00 04/26/25 13:03 Amiodarone Hcl 200 Mg Tablet PO 05/23/25 20:59 200 mg BID YESICA Administration Atorvastatin Calcium 40 mg 04/23/25 21:00 04/25/25 20:46 Atorvastatin Calcium 20 Mg Tablet PO 05/23/25 20:59 40 mg HS YESICA Administration Bumetanide 2 mg 04/23/25 18:00 04/26/25 05:32 Bumetanide Inj 0.25 Mg/Ml Vial 4 Ml IVP 05/23/25 17:59 2 mg BIDD YESICA Administration Carvedilol 12.5 mg 04/23/25 17:30 04/26/25 13:01 Carvedilol 12.5 Mg Tablet PO 05/23/25 17:29 12.5 mg BIDWM YESICA Administration Digoxin 0.125 mg 04/24/25 09:00 04/26/25 13:03 Digoxin 0.125 Mg Tablet PO 05/24/25 08:59 0.125 mg QDAY YESICA Administration Enoxaparin Sodium 100 mg 04/23/25 21:00 04/25/25 20:46 Enoxaparin Sod Inj 100 Mg/Ml Syringe SC 05/07/25 20:59 100 mg BID YESICA Administration Ondansetron HCl 4 mg 04/23/25 13:30 Ondansetron Inj 2 Mg/Ml Inj 2 Ml IVP 05/23/25 13:29 Q6H PRN NAUSEA OR VOMITING Protocol Sennosides 1 tab 04/24/25 09:00 04/26/25 13:03 Senna Tablet PO 05/24/25 08:59 1 tab QDAY YESICA Administration Protocol Spironolactone 25 mg 04/24/25 09:00 04/26/25 13:04 Spironolactone 25 Mg Tablet PO 05/24/25 08:59 25 mg QDAY YESICA Administration Plan Patient is a 64 years old male with PMH of CAD s/p 4 stents, HFrEF EF 25%, possible COPD, hypertension presented to the ED due to shortness of breath and chest pressure for several days and was admitted for further work up. #Acute decompensated heart failure exacerbation NYHA class IV EF 20-25% in 2022. 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 #CAD s/p multiple PCIs. On admission shortness of breath, dyspnea on exertion, orthopnea, trace bilateral leg swelling, chest pressure with impending doom feeling. Patient has orthopnea, requiring extra pillows to sleep, woke up suddenly with chest pressure 7/10 nonradiating and sense of impending doom. CXR showed vascular congestion. BNP 809, negative troponin I. Last echo in 2022: Dilated cardiomyopathy. Moderately dilated LV. Severe systolic function. Severe global hypokinesis. Estimted EF 20-25%. Normal RV size. Moderately reduced function. Pacing wire present. LA mildly dilated. Echo from 04/23/25 showed Severely dilated LV at 6.5 cm. Severely decreased ejection fraction estimated at 10 to 15%. Global hypokinesis and apical akinesis. Coronary angiography today showed chronic systolic heart failure, ejection fraction of 15-20%, Normal right heart pressures and normal end diastolic pressure as well as wedge pressures. No evidence of pulmonary hypertension. 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 Plan: -Continue Bumex 2 mg PO QD. -Continue spironolactone 25 mg p.o. once daily. -Continue carvedilol 12.5mg PO BID. -Continue digoxin 125 mcg daily. -Continue home atorvastatin. -Keep K>4, Mg>2. -Strict I's and O's. -Fluid restriction 2000cc. #Chronic persistent Afib, rate controlled. CHADVASC of 4; 4.8% stroke risk. Patient on amiodarone 200 mg twice daily, Carvedilol 12.5 mg p.o. twice daily and Eliquis 5 mg BID. Loaded with 250mcg of Digoxin on presentation and later decreased to Digoxin 125mcg daily. Plan: -Continue digoxin 125 mcg. -media monitor. -resume home Eliquis. -continue amiodarone 200 mg BID. Management of other problems as per primary team. Plan of care discussed with attending Dr. Warner. Aníbal Paula MD, PGY 2. Disclaimer: This note was dictated by speech recognition. Minor errors in custom protection officer may be present due to voice recognition software.
--- NOTE | 2025-04-26 14:14 | ESOP_ITS ---
RE: SALEEM DUNN : 1960 DATE OF OPERATION: 04/26/2025 PROCEDURES PERFORMED: 1. Diagnostic right and left heart cardiac catheterization, selective coronary angiogram, and left ventricular angiogram, CPT 18214. 2. Conscious sedation for 30-minute duration. 3. Ultrasound-guided access of right radial artery. DIAGNOSES: Ischemic cardiomyopathy, acute on chronic systolic heart failure, acute coronary syndrome, chest pain, unstable angina, known CAD, stent placement. 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 He came to the hospital for severe shortness of breath and acutely decompensated congestive heart failure over the weekend with severe shortness of breath. The patient continued to have shortness of breath and has had episodes of severe chest pain on admission. Enzymes were negative. Cardiac catheterization and coronary angiogram were recommended to assess if the patient is a candidate for coronary revascularization and intervention. INTERVENTION: Echocardiogram showed ejection fraction only 20%, extensive anteroapical akinesis. DESCRIPTION OF PROCEDURE: The patient was brought to cardiac catheterization laboratory. He was given conscious sedation of 2 mg of Versed and 50 mcg of fentanyl. Right radial approach was taken for left heart catheterization. Right radial artery cannulated with micropuncture technique, 6-Mozambican sheath was introduced. Right femoral vein was cannulated and 7-Mozambican introduced. Ultrasound guidance was used. Right heart catheterization performed with Spofford-Matthieu catheter. Right heart pressure was measured. Cardiac output was obtained by thermodilution technique. Subsequently, left heart catheterization was performed by 5-Mozambican TIG-4 diagnostic catheter. Left ventricular angiogram performed by hand injection method. Subsequently, TR band was applied. Hemostasis was secured. Cardiac catheterization showed following findings. HEMODYNAMICS: Right atrial pressure was found to be 7 mmHg. Right ventricle pressure was 33/7 mmHg. Pulmonary artery pressure 30/16 mmHg, mean 22 mmHg, pulmonary artery wedge pressure 12 mmHg, left ventricular pressure 133, EDP 28 mmHg. Aortic pressure 130/70 mmHg. No gradient across the aortic valve. Left ventricular angiogram showed evidence of severe global hypokinesis. Ejection fraction of 15-20%. Cardiac output was recorded to be 2.4 L/min. Coronary angiogram showed following findings. Right coronary artery large and dominant showed evidence of total occlusion in the mid right coronary artery. Left coronary system: Left main coronary artery is normal. Left anterior descending artery showed no significant stenosis. Circumflex artery showed a stent, which is widely patent. SUMMARY OF FINDINGS AND SUGGESTIONS: 1. Ischemic cardiomyopathy, chronic systolic heart failure, ejection fraction of 15-20%. 2. Normal right heart pressures and normal end diastolic pressure as well as wedge pressures. Well-treated heart failure. 3. No evidence of pulmonary hypertension. 4. 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 RECOMMENDATIONS: The patient has severe cardiomyopathy. No significant revascularization lesions. RCA occlusion is chronic. Recommend medical management. We will start him on low-dose Entresto if he can tolerate along with low-dose beta-tracie with carvedilol, Entresto, and diuretic therapy maintenance. He will be discharged on bumetanide 1 mg daily, increase to 2 mg if necessary and spironolactone 25 mg daily along with Entresto low dose and beta-tracie as well as digoxin 125 mcg daily and amiodarone 200 mg twice daily. The patient also noted to have atrial flutter on the monitor. We will discuss about possibly referring the patient for atrial flutter ablation, might help him increasing cardiac output. We will also consider referral for cardiac transplantation if he continues to have severe symptoms of shortness of breath with minimal activity. DT: 13:27:50 TT: 14:09:00 Ref: [id number] - TID: [id number]
--- NOTE | 2025-04-26 15:12 | ESDS_ITS ---
<Statement entered by Sudah Edouard DO - 04/27/25 08:10> I, Sudha Edouard DO, attest that I was physically present for the mares portions of the service and evaluated the patient with the resident and I reviewed and discussed the case with the resident and agree with the resident's findings and plans of care as documented above Planned Discharge Date 04/26/25 DS: Providers Provider Date of admission: 04/23/25 13:30 Primary care physician: Jose Oneill MD Admitting Provider: Sudha Edouard DO Attending Provider on Admission: Sudha Edouard DO Consults: 04/23/25 12:47 Consult to Cardiology Stat Comment: Chest pain Consulting Provider: Mark Warner 04/23/25 17:51 [facility] Referral - Knowledge Deficit Routine Comment: Positive screening for knowledge deficit needs. Attending Provider on DC: Lauro Holguin MD Discharging Provider: Lauro Holguin MD DS: Diagnosis Problem List Completed Was Problem List Reviewed/Reconciled?: Yes Hospital Course Hospital Course Hospital course: 64-year-old male with past medical history of ischemic cardiomyopathy, chronic systolic heart failure with reduced ejection fraction EF 15-20% status post defibrillator, PCI with stent placement of RCA, circumflex, history of dilated cardiomyopathy, COPD, atrial fibrillation and hypertension presented to the ED with increased chest pressure. In the ED, patient had mild leukocytosis, tachycardic but saturating 97 on room air. Chest x-ray showed some vascular congestion and EKG showed some sinus tachycardia without concerning ST changes. Patient was admitted for acute decompensated heart failure with an echo ordered, cardiology consultation and IV diuretics. Patient had atrial fibrillation with RVR noted on telemetry and was started on bolus of digoxin which was later switched to regular dose. Patient continues to experience some shortness of breath at which point cardiology completed a right and left heart catheteriza tion on 04/26. Coronary angiogram findings included RCA which large dominant showed total occlusion of the mid right coronary artery, left coronary system was normal and there was no significant stenosis in the LAD, circumflex artery showed a stent which was patent. Patient will be discharged with new regimen for decompensated heart failure and will follow-up with cardiology with the strict instructions. Please take Bumex 2 mg by mouth twice a day for Heart Failure with Reduced EF Please take half a tablet of Entresto 24-26mg twice a day for Heart Failure Your Coreg dose has increased to 12.5mg by mouth twice a day Continue all other home medications as prescribed Please follow-up with Dr. Warner, Cardiology, within the next 1-2 weeks Please follow-up with your PCP within the next 1-2 weeks; ask for Digoxin level If your symptoms worsen or if you develop new chest pain, shortness of breath, dizziness or loss of consciousness - please come back to the ED immediately. 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 #Afib with RVR, resolved #Chronic Persistent Afib #Hypertension #Hyperlipidemia #COPD Lauro Holguin, PGY-1 Time Spent with Patient Time attestation: Total time spent providing and/or coordinating discharge services: 45 minutes Time spent: Greater than 30 minutes Exam Vital Signs Temp Pulse Resp BP Pulse Ox O2 Del Method O2 Flow Rate 97.4 F 92 16 113/80 95 Room Air 2 04/26/25 12:00 04/26/25 13:04 04/26/25 12:34 04/26/25 13:04 04/26/25 12:34 04/26/25 12:34 04/26/25 12:00 FiO2 2 04/26/25 12:00 Narrative Exam Physical Exam: GENERAL: Awake, answering questions appropriately, appears stated age, morbidly obese HEENT: Moist mucosa. Eyes open, symmetrical, & clear CARDIO: Heart RRR, no obvious murmurs PULM: No noted coughing/dyspnea CTA B/L, no R/W/R GI: Abdomen soft, nondistended, no pain on palpation. BSx4 SKIN/MSK/EXT: minimal nonpitting edema bilateral lower extremities, no pain on palpation. Pedal pulses present B/L NEURO: AAOx3, no focal neuro deficits, able to move all 4 extremities Discharge Plan Plan Patient Disposition: HOME (Self Care) Patient condition on transfer: Stable Care Plan Goals: Please take Bumex 2 mg by mouth daily for Heart Failure with Reduced EF Please take half a tablet of Entresto 24-26mg twice a day for Heart Failure Your Coreg dose has increased to 12.5mg by mouth twice a day Continue all other home medications as prescribed Please follow-up with Dr. Warner, Cardiology, within the next 1-2 weeks Please follow-up with your PCP within the next 1-2 weeks; ask for Digoxin level If your symptoms worsen or if you develop new chest pain, shortness of breath, dizziness or loss of consciousness - please come back to the ED immediately. Prescriptions/Referrals Prescriptions/Med Rec: New bumetanide 2 mg tablet 2 mg PO QDAY 30 Days Qty: 30 0RF Entresto 24-26 mg tablet 0.5 tab PO BID 30 Days Qty: 30 0RF carvedilol 12.5 mg tablet 12.5 mg PO BID 30 Days Qty: 60 0RF Rx Instructions: must administer with a meal/food Continued digoxin 125 mcg (0.125 mg) tablet 0.125 mg PO BID 30 Days Qty: 60 0RF Rx Instructions: Per patient, Dr. Warner had patient taking both doses together Qday for 3 days. Currently on the end of day 2 amiodarone 200 mg tablet 200 mg PO BID 30 Days Qty: 60 0RF spironolactone 25 mg tablet 25 mg PO DAILY 30 Days Qty: 30 0RF rosuvastatin 40 mg tablet 20 mg PO DAILY 30 Days Qty: 15 0RF Eliquis 5 mg tablet 5 mg PO BID 30 Days Qty: 60 0RF Discontinued bumetanide 1 mg tablet 1 mg PO DAILY Patient Comments: TAKE 1 TABLET BY MOUTH EVERY DAY carvedilol 6.25 mg tablet 6.25 mg PO BID 30 Days Qty: 60 2RF Rx Instructions: must administer with a meal/food Ref[facility]: [facility] P[facility]i [Primary Care Provider] - Mark Warner MD [Physician] - Patient/Caregiver Discharge Instructions Education Materials: Heart Failure and Depression, Coping with Heart Failure, Eating Heart-Healthy Foods Print Language: Algerian Stand Alone Forms: Lizbeth Award Info., Patient Portal Info Letter Discharge Order Discharge Orders: Discharge (Routine); Ordered 04/26/25 Ordered By: Lauro Holguin Quality Discharge Quality Measures VTE prophylaxis
--- NOTE | 2025-04-27 07:25 | ESPR_ITS ---
RE: SALEEM DUNN : 1960 DATE OF SERVICE: 04/25/2025 SUBJECTIVE: The patient is a 64-year-old male, admitted to the hospital with severe shortness of breath and congestive heart failure. Symptoms treated well __. The patient also has significant chest pain. He has known CAD, _ stent placed in the circumflex artery. Last angiogram 2 years ago because of shortness of breath. Cardiac echo showing evidence of extensive septal hypokinesis and severe global hypokinesis. Recommended to have further evaluation and possible coronary angiogram. The patient clinically could not have any chest pain today or shortness of breath medical management with Bumex IV. OBJECTIVE: Vital Signs: Blood pressure 120/80, pulse 90. Neck: Supple. Lungs: Decreased breath sounds. Heart: Sounds irregular, AFib, rate controlled well. Abdomen: Thin and soft. Extremities: Mild edema. DIAGNOSTIC DATA: Echocardiogram showed atrial fibrillation, rate controlled. LABORATORY DATA: Chemistry panel showed creatinine is 1.4, BUN is 22, potassium 3.8. The patient's BNP initially was elevated, but cardiac enzymes were normal. IMPRESSION: 1. Acutely decompensated chronic systolic heart failure. 2. Coronary artery disease, status post stent placement and ischemic cardiomyopathy, ejection fraction 20%. _ RECOMMENDATIONS: 1. schedule_ right and left heart cardiac catheterization tomorrow morning. 2. Patency of coronary arteries and stents and also right heart pressures to optimize medical management. DT: 08:48:36 TT: 09:16:00 Ref: [id number] - TID: [id number] [facility]
== END 2025-04-26 17:00 | disposition home or self-care (01) | DRG 286 ==
LOC: SERX 14:02 → SERHOLD 14:03 → S2NX 17:14
PROVIDERS: Internal Medicine Cardiovascular Disease; Nurse Practitioner Family; Student in an Organized Health Care Education/Training Program; Admitting Provider Internal Medicine; Emergency Provider Family Medicine; PCP Family Medicine; Visit Provider Internal Medicine
DX: I11.0 Hypertensive heart disease with heart failure (principal); I50.23 Acute on chronic systolic (congestive) heart failure; I48.19 Other persistent atrial fibrillation; Z68.41 Body mass index [BMI] 40.0-44.9, adult; I24.9 Acute ischemic heart disease, unspecified; I47.19 Other supraventricular tachycardia; I25.5 Ischemic cardiomyopathy; E78.5 Hyperlipidemia, unspecified; I25.110 Atherosclerotic heart disease of native coronary artery with unstable angina pectoris; J44.9 Chronic obstructive pulmonary disease, unspecified; I42.0 Dilated cardiomyopathy; E66.01 Morbid (severe) obesity due to excess calories; F41.9 Anxiety disorder, unspecified; Z79.899 Other long term (current) drug therapy; I25.82 Chronic total occlusion of coronary artery; F17.210 Nicotine dependence, cigarettes, uncomplicated; Z95.5 Presence of coronary angioplasty implant and graft; Z95.810 Presence of automatic (implantable) cardiac defibrillator; Z79.01 Long term (current) use of anticoagulants
CPT/HCPCS: 36415; 71045; 80053; 81001; 83735; 83880; 84100; 84443; 84484; 85025; 85610; 85730; 87081; 87811; 93005; 93306; 94762; 96374; 99285; A4649; A9270; C1769; C1887; C1894; J0171; J0461; J1643; J1650; J2250; J2310; J2371; J3010; J3475; J3490; Q9967; J2305

== ENCOUNTER → 2025-05-04 | Outpatient (CLI) | payer MEDICARE, BC, SELFPAY ==
[2025-05-04 10:42] LABS: Albumin, Serum 4.3 gm/dL (3.4-4.8); Anion Gap 11 (7-16); BUN/Creatinine Ratio 20 Ratio (12-20); Blood Urea Nitrogen 22 mg/dL (9-23); Calcium 9.3 mg/dL (8.3-10.6); Calcium (Corrected) 9.3 mg/dL (8.5-10.1); Carbon Dioxide 21.9 mMol/L (20.0-31.0); Chloride 107 mMol/L (98-107); Creatinine (Component) 1.1 mg/dL (0.6-1.3); Glucose 122 mg/dL (74-106); Osmolality,Calculated 283 (275-295); Phosphorous 2.9 mg/dL (2.4-5.1); Potassium 4.2 mMol/L (3.4-5.1); Sodium 140 mMol/L (136-145); eGFR > 60 See Note
== END | disposition home or self-care (01) ==
LOC: COPL 09:07
PROVIDERS: PCP Family Medicine; Referring Provider Internal Medicine Cardiovascular Disease; Visit Provider Internal Medicine Cardiovascular Disease
DX: I25.118 Atherosclerotic heart disease of native coronary artery with other forms of angina pectoris (principal); I50.22 Chronic systolic (congestive) heart failure
CPT/HCPCS: 36415; 80069

== ENCOUNTER → 2025-05-17 | Outpatient (CLI) | payer MEDICARE, BC, SELFPAY ==
[2025-05-17 11:06] LABS: Albumin, Serum 4.4 gm/dL (3.4-4.8); Anion Gap 10 (7-16); BUN/Creatinine Ratio 15 Ratio (12-20); Blood Urea Nitrogen 21 mg/dL (9-23); Calcium 8.8 mg/dL (8.3-10.6); Calcium (Corrected) 8.8 mg/dL (8.5-10.1); Carbon Dioxide 28.4 mMol/L (20.0-31.0); Chloride 104 mMol/L (98-107); Creatinine (Component) 1.4 mg/dL (0.6-1.3); Glucose 141 mg/dL (74-106); Osmolality,Calculated 288 (275-295); Phosphorous 2.6 mg/dL (2.4-5.1); Potassium 3.9 mMol/L (3.4-5.1); Sodium 142 mMol/L (136-145); eGFR 55 See Note
== END | disposition home or self-care (01) ==
LOC: COPL 09:41
PROVIDERS: PCP Family Medicine; Referring Provider Internal Medicine Cardiovascular Disease; Visit Provider Internal Medicine Cardiovascular Disease
DX: I25.118 Atherosclerotic heart disease of native coronary artery with other forms of angina pectoris (principal)
CPT/HCPCS: 36415; 80069

== ENCOUNTER → 2025-07-18 | Outpatient (CLI) | payer MEDICARE, BC, SELFPAY ==
[2025-07-18 10:17] LABS: Albumin, Serum 4.2 gm/dL (3.4-4.8); Anion Gap 10 (7-16); BUN/Creatinine Ratio 14 Ratio (12-20); Blood Urea Nitrogen 15 mg/dL (9-23); Calcium 9.3 mg/dL (8.3-10.6); Calcium (Corrected) 9.3 mg/dL (8.5-10.1); Carbon Dioxide 24.2 mMol/L (20.0-31.0); Chloride 107 mMol/L (98-107); Creatinine (Component) 1.1 mg/dL (0.6-1.3); Glucose 128 mg/dL (74-106); Osmolality,Calculated 284 (275-295); Phosphorous 2.1 mg/dL (2.4-5.1); Potassium 4.1 mMol/L (3.4-5.1); Sodium 141 mMol/L (136-145); eGFR > 60 See Note
== END | disposition home or self-care (01) ==
LOC: COPL 08:29
PROVIDERS: PCP Nurse Practitioner Family; Referring Provider Internal Medicine Cardiovascular Disease; Visit Provider Internal Medicine Cardiovascular Disease
DX: I25.118 Atherosclerotic heart disease of native coronary artery with other forms of angina pectoris (principal); I50.22 Chronic systolic (congestive) heart failure; R06.00 Dyspnea, unspecified
CPT/HCPCS: 36415; 80069

== ENCOUNTER → 2025-08-16 | Outpatient (CLI) | payer MEDICARE, BC, SELFPAY ==
[2025-08-16 10:03] LABS: Albumin, Serum 4.8 gm/dL (3.4-4.8); Anion Gap 9 (7-16); BUN/Creatinine Ratio 23 Ratio (12-20); Blood Urea Nitrogen 43 mg/dL (9-23); Calcium 9.9 mg/dL (8.3-10.6); Calcium (Corrected) 9.9 mg/dL (8.5-10.1); Carbon Dioxide 29.3 mMol/L (20.0-31.0); Chloride 98 mMol/L (98-107); Creatinine (Component) 1.9 mg/dL (0.6-1.3); Glucose 197 mg/dL (74-106); Osmolality,Calculated 287 (275-295); Phosphorous 3.1 mg/dL (2.4-5.1); Potassium 3.4 mMol/L (3.4-5.1); Sodium 136 mMol/L (136-145); eGFR 38 See Note
== END | disposition home or self-care (01) ==
LOC: COPL 08:09
PROVIDERS: PCP Family Medicine; Referring Provider Internal Medicine Cardiovascular Disease; Visit Provider Internal Medicine Cardiovascular Disease
DX: I25.118 Atherosclerotic heart disease of native coronary artery with other forms of angina pectoris (principal)
CPT/HCPCS: 36415; 80069

== ENCOUNTER → 2025-09-12 | Outpatient (CLI) | payer MEDICARE, BC, SELFPAY ==
[2025-09-12 10:49] LABS: Albumin, Serum 4.2 gm/dL (3.4-4.8); Anion Gap 11 (7-16); BUN/Creatinine Ratio 9 Ratio (12-20); Blood Urea Nitrogen 12 mg/dL (9-23); Calcium 9.4 mg/dL (8.3-10.6); Calcium (Corrected) 9.4 mg/dL (8.5-10.1); Carbon Dioxide 25.4 mMol/L (20.0-31.0); Chloride 102 mMol/L (98-107); Creatinine (Component) 1.3 mg/dL (0.6-1.3); Glucose 138 mg/dL (74-106); Osmolality,Calculated 277 (275-295); Phosphorous 2.6 mg/dL (2.4-5.1); Potassium 4.4 mMol/L (3.4-5.1); Sodium 138 mMol/L (136-145); eGFR > 60 See Note
== END | disposition home or self-care (01) ==
LOC: COPL 09:07
PROVIDERS: PCP Nurse Practitioner Family; Referring Provider Internal Medicine Cardiovascular Disease; Visit Provider Internal Medicine Cardiovascular Disease
DX: I50.22 Chronic systolic (congestive) heart failure (principal)
CPT/HCPCS: 36415; 80069

== ENCOUNTER → 2025-10-21 | Outpatient (CLI) | payer MEDICARE, BC, SELFPAY ==
[2025-10-21 09:56] LABS: Albumin, Serum 4.5 gm/dL (3.4-4.8); Anion Gap 7 (7-16); BUN/Creatinine Ratio 14 Ratio (12-20); Blood Urea Nitrogen 15 mg/dL (9-23); Calcium 9.0 mg/dL (8.3-10.6); Calcium (Corrected) 9.0 mg/dL (8.5-10.1); Carbon Dioxide 29.4 mMol/L (20.0-31.0); Chloride 106 mMol/L (98-107); Creatinine (Component) 1.1 mg/dL (0.6-1.3); Glucose 125 mg/dL (74-106); Osmolality,Calculated 284 (275-295); Phosphorous 2.6 mg/dL (2.4-5.1); Potassium 4.3 mMol/L (3.4-5.1); Sodium 142 mMol/L (136-145); eGFR > 60 See Note
== END | disposition home or self-care (01) ==
LOC: COPL 08:44
PROVIDERS: PCP Family Medicine; Referring Provider Internal Medicine Cardiovascular Disease; Visit Provider Internal Medicine Cardiovascular Disease
DX: I50.22 Chronic systolic (congestive) heart failure (principal)
CPT/HCPCS: 36415; 80069

== ENCOUNTER → 2025-11-09 | Outpatient (CLI) | payer MEDICARE, BC, SELFPAY ==
[2025-11-09 09:49] LABS: Basophils # (Auto) 0.1 Thou/mm3 (0.0-0.2); Basophils % (Auto) 1 % (0-2.5); Eosinophils # (Auto) 0.2 Thou/mm3 (0.0-0.5); Eosinophils % (Auto) 1 % (0-10); Hematocrit 47.2 % (41.0-53.0); Hemoglobin 16.4 g/dL (13.5-16.0); Immature Granulocytes Auto 0.06 Thou/mm3 (0.00-0.00); Lymphocytes # (Auto) 1.8 Thou/mm3 (1.0-4.8); Lymphocytes % (Auto) 16 % (10-50); Mean Corpuscular HGB Conc 34.7 g/dl (31.0-37.0); Mean Corpuscular Hemoglobin 34.9 pg (25.0-35.0); Mean Corpuscular Volume 100 fL (80-100); Monocytes # (Auto) 0.6 Thou/mm3 (0.0-0.8); Monocytes % (Auto) 6 % (0-12); Neutrophils # (Auto) 8.5 Thou/mm3 (1.8-7.7); Neutrophils % (Auto) 76 % (37-80); Nucleated Red Blood Cell # 0.00 Thou/mm3 (0.00-0.00); Nucleated Red Blood Cell % 0 /100 WBC (0); Platelet Count 229 Thou/mm3 (140-440); RDW Standard Deviation 48.9 fL (35.1-43.9); Red Blood Count 4.70 Miln/mm3 (4.50-5.90); White Blood Count 11.2 Thou/mm3 (3.8-10.6)
[2025-11-09 10:14] LABS: Glucose Estimated Average 134 mg/dL (80-131); Hemoglobin A1C 6.3 % Hgb (4.8-6.0)
[2025-11-09 12:08] LABS: Alanine Aminotransferase 66 U/L (10-49); Albumin, Serum 4.6 gm/dL (3.4-4.8); Albumin/Globulin Ratio 1.5 (1.2-2.2); Alkaline Phosphatase 72 U/L (46-116); Anion Gap 10 (7-16); Aspartate Amino Transferase 51 U/L (0-34); BUN/Creatinine Ratio 15 Ratio (12-20); Bilirubin,Total 0.7 mg/dL (0.3-1.2); Blood Urea Nitrogen 20 mg/dL (9-23); Calcium 9.3 mg/dL (8.3-10.6); Calcium (Corrected) 9.3 mg/dL (8.5-10.1); Carbon Dioxide 28.1 mMol/L (20.0-31.0); Cardiac Risk Estimate 4.8 RATIO (4.0-6.7); Chloride 101 mMol/L (98-107); Cholesterol 189 mg/dL (132-200); Creatinine (Component) 1.3 mg/dL (0.6-1.3); Free T4 (Free Thyroxine) 1.57 ng/dL (0.89-1.76); Globulin 3.1 gm/dL (2.3-3.5); Glucose 221 mg/dL (74-106); HDL Cholesterol 39 mg/dL (40-60); LDL Cholesterol,Calculated 97 mg/dL (0-130); Osmolality,Calculated 287 (275-295); Potassium 3.7 mMol/L (3.4-5.1); Sodium 139 mMol/L (136-145); Thyroid Stimulating Hormone 2.33 uIU/mL (0.55-4.78); Total Protein 7.7 gm/dL (5.7-8.2); Triglycerides 266 mg/dL (30-150); eGFR > 60 See Note
[2025-11-09 12:13] LABS: Ferritin 1530 ng/mL (10.5-307.3); Iron 215 mcg/dL (65-175); Percent Iron Saturation 79 % (20-55); Total Iron Binding Capacity 271 mcg/dL (250-425); Unsaturated Iron Binding 56 (225-295)
[2025-11-09 12:33] LABS: Vitamin D 25 Hydroxy Total 19.5 ng/mL (7.3-40.2)
[2025-11-22 03:05] LABS: HCV RNA, PCR <15 NOT DETECTED IU/mL; PSA, Free <0.10 ng/mL; PSA, Total 0.1 ng/mL (< OR = 4.0)
[2025-11-22 07:09] LABS: HCV RNA, PCR Log IU <1.18 NOT DETECTED Log IU/mL
== END | disposition home or self-care (01) ==
LOC: COPL 08:30
PROVIDERS: PCP Family Medicine; Referring Provider Nurse Practitioner Family; Visit Provider Nurse Practitioner Family
DX: E78.5 Hyperlipidemia, unspecified (principal); I10 Essential (primary) hypertension; Z13.29 Encounter for screening for other suspected endocrine disorder; N40.1 Benign prostatic hyperplasia with lower urinary tract symptoms; Z13.1 Encounter for screening for diabetes mellitus; Z11.59 Encounter for screening for other viral diseases; Z13.0 Encounter for screening for diseases of the blood and blood-forming organs and certain disorders involving the immune mechanism
CPT/HCPCS: 36415; 80053; 80061; 82306; 82728; 83036; 83540; 83550; 84153; 84154; 84439; 84443; 85025; 87522